=== PATIENT | female | born 1985 | race Caucasian/White ===

== ENCOUNTER 2016-05-26 20:00 | Inpatient (IN) ==
[2016-05-26] MEDS ORDERED: TORADOL IM STA (20:14)
[2016-05-26] MEDS ORDERED: TORADOL IVP STA (20:16)
[2016-05-26] MEDS ORDERED: PRIMAXIN 500 MG in SODIUM CHLORIDE 100 ML IV STA (20:16)
--- NOTE | 2016-05-26 20:18 | ED.PDOC ---
General ED Provider: Dr. REGINA OWENS Chief Complaint: Back Pain Stated Complaint: Been hurting in the left lower back since yesterday. frequency of urination. fever chills. Time Seen by Physician: 20:17 Mode of Arrival: Walk-In Information Source: Patient Primary Care Provider: REGINA OWENS-[facility] Nursing and Triage Documentation Reviewed and Agree: Yes Musculoskeletal Complaint Exam - Back Pain Complaint/Exam Mechanism of Injury: Reports: No known trauma Symptoms Are: Still present Timing: Constant Initial Severity: Severe Current Severity: Severe Location: Reports: Discrete Character: Reports: Aching, Throbbing Aggravating: Reports: Movements, Lifting Alleviating: Reports: None Associated Signs and Symptoms: Reports: Fever, Flank pain. Denies: Swelling, Redness, Bruising, Weakness, Numbness, Tingling, Abdominal pain, Bladder incontinence, Bowel incontinence, Weight loss, Pain with weight bearing TAD Risk Factors: Reports: None AAA Risk Factors: Reports: None Cauda Equina Risk Factors: Reports: None Epidural Abcess Risk Factors: Reports: None Related Surgical History: Reports: None Focal Tenderness: Yes Paraspinal Muscle Tenderness: Yes Paraspinal Muscle Spasm: Yes Scoliosis: No Lordosis: No Kyphosis: No Focal Weakness: Present: None Focal Sensory Loss: Present: None Gait: Present: Normal Differential Diagnoses: Renal Colic, Strain Review of Systems - Review Of Systems Constitutional: Reports: Fever, Malaise Eyes: Reports: No symptoms Ears, Nose, Mouth, Throat: Reports: No symptoms Respiratory: Reports: No symptoms Cardiac: Reports: No symptoms GI: Reports: Abdominal pain : Reports: Dysuria, Flank pain Musculoskeletal: Reports: Back pain Skin: Reports: No symptoms Neurological: Reports: No symptoms Endocrine: Reports: No symptoms Hematologic/Lymphatic: Reports: No symptoms All Other Systems: Reviewed and Negative Past Medical History - Past Medical History Previously Healthy: Yes Endocrine: Reports: None Cardiovascular: Reports: None Respiratory: Reports: None Hematological: Reports: None Gastrointestinal: Reports: None Genitourinary: Reports: None Neuro/Psych: Reports: None Musculoskeletal: Reports: None Cancer: Reports: None Last Menstrual Period: 1 1/2 weeks - Surgical History General Surgical History: Reports: None - Family History Family History: Reports: None - Social History Smoking Status: Current every day smoker, Heavy tobacco smoker Smoking Cessation Counseling Time: > 10 min Hx Substance Use: No Alcohol Screening: None Physical Exam - Physical Exam Appearance: Ill-appearing Pain Distress: Severe Eyes: CRISTINA, EOMI, Conjunctiva clear ENT: Ears normal, Nose normal, Oropharynx normal Respiratory: Airway patent, Breath sounds clear, Breath sounds equal, Respirations nonlabored Cardiovascular: RRR, Pulses normal, No rub, No murmur GI/: Soft, Tender (left cva) Musculoskeletal: Normal strength, ROM intact, No edema, No calf tenderness Skin: Warm, Dry, Normal color Neurological: Sensation intact, Motor intact, Reflexes intact, Cranial nerves intact, Alert, Oriented Psychiatric: Affect appropriate, Mood appropriate Interpretation - Radiology Interpretation Radiology Interpretation By: Radiologist Radiology Results: Positive Exam Interpreted: CT Scan Critical Care Note - Critical Care Note Total Time (mins): 0 Course - Course Hematology/Chemistry: 05/26/16 20:25 05/26/16 20:25 Orders, Labs, Meds: Lab Review 05/26/16 05/26/16 20:15 20:25 WBC 12.65 H RBC 4.16 L Hgb 12.7 Hct 37.6 MCV 90.4 MCH 30.5 MCHC 33.8 RDW Coeff of Uday 12.3 Plt Count 273 Immature Gran % (Auto) 0.3 Neut % (Auto) 84.1 Lymph % (Auto) 7.4 L Otero % (Auto) 7.3 Eos % (Auto) 0.7 Baso % (Auto) 0.2 Immature Gran # (Auto) 0.0 Neut # 10.6 H Lymph # 0.9 Otero # 0.9 Eos # 0.1 Baso # 0.0 Sodium 132 L Potassium 3.9 Chloride 98 Carbon Dioxide 27 Anion Gap 10.9 BUN 8 Creatinine 0.81 Estimated GFR (MDRD) 81.00 BUN/Creatinine Ratio 9.87 Glucose 91 Calcium 8.7 Total Bilirubin 0.50 AST 13 L ALT 8 L Alkaline Phosphatase 66 Total Protein 6.4 Albumin 3.2 L Globulin 3.2 Albumin/Globulin Ratio 1.00 Urine Color Light Urine Clarity Cloudy Urine pH 8.5 Ur Specific [place] 1.020 Urine Protein Trace Urine Glucose (UA) Negative Urine Ketones Negative Urine Blood 1+ Urine Nitrite Positive Urine Bilirubin Negative Urine Urobilinogen 0.2 Ur Leukocyte Esterase 1+ Urine Microscopic RBC 10-20 Urine Microscopic WBC 5-10 Ur Squamous Epith Cells 10-20 Ur Transition Epith Cell 2-5 Ur Renal Epithelial Cell 2-5 Urine Bacteria 4+ Urine Test Negative Orders Category Date Time Status ED IV/MEDIPORT/POWERPORT .ONCE EMERGENCY 05/26/16 20:16 Active BLOOD CULTURE Stat LAB 05/26/16 20:25 Received CBC W/ AUTO DIFF Stat LAB 05/26/16 20:25 Completed COMPREHENSIVE METABOLIC PANEL Stat LAB 05/26/16 20:25 Completed URINALYSIS C & S IF INDICATED Stat LAB 05/26/16 20:15 Completed URINE CULTURE Routine LAB 05/26/16 20:48 Received URINE Stat LAB 05/26/16 20:15 Completed 0.9 % Sodium Chloride [Saline Flush] MEDS 05/26/16 20:16 Ordered 1 syr IVF PRN PRN Imipenem/Cilastatin Sodium [Primaxin] 500 mg MEDS 05/26/16 20:16 Discontinued 0.9 % Sodium Chloride [Sodium Chloride] 100 ml IV ONCE Ketorolac Tromethamine [Toradol] MEDS 05/26/16 20:16 Discontinued 30 mg IVP ONCE STA Meperidine HCl/Pf [Demerol 25 mg/ml Syringe] MEDS 05/26/16 21:18 Discontinued 25 mg IVP ONCE STA CT ABDOMEN/PELVIS WO CONTRAST Stat RADS 05/26/16 20:14 Completed Medications Generic Name Dose Route Start Last Admin Trade Name Freq PRN Reason Stop Dose Admin Sodium Chloride 1 syr 05/26/16 20:16 05/26/16 21:02 Saline Flush IVF 1 syr PRN PRN Administration To flush IV Discontinued Medications Generic Name Dose Route Start Last Admin Trade Name Freq PRN Reason Stop Dose Admin Imipenem/Cilastatin Sodium 500 100 mls @ 100 mls/hr 05/26/16 20:16 05/26/16 21:04 mg/ Sodium Chloride IV 05/26/16 21:15 100 mls/hr ONCE STA Administration Ketorolac Tromethamine 30 mg 05/26/16 20:16 05/26/16 21:00 Toradol IVP 05/26/16 20:17 30 mg ONCE STA Administration Meperidine HCl 25 mg 05/26/16 21:18 05/26/16 21:29 Demerol 25 Mg/Ml Syringe IVP 05/26/16 21:19 25 mg ONCE STA Administration Vital Signs: Temp Pulse Resp BP Pulse Ox 05/26/16 20:01 101.5 F H 129 H 20 132/83 100 Departure - Departure Time of Disposition: 22:23 Disposition: ADMITTED INPATIENT Discharge Problem: Pyelonephritis Instructions: Urinary Tract Infection in Women (ED) Condition: Stable Pt referred to PMD for follow-up: Yes Allergies/Adverse Reactions: Allergies ceftriaxone sodium [From Rocephin] Adverse Reaction (Verified 05/26/16 20:08) Home Medications: Ambulatory Orders 1 [No Reported Medications] 05/26/16 Disposition Discussed With: Patient
[2016-05-26 20:35] LABS: BASOPHILS % (AUTO) 0.2 % (0.0-3.0); EOSINOPHILS # (AUTO) 0.1 K/ul (0.0-0.7); EOSINOPHILS % (AUTO) 0.7 % (0.0-7.0); HEMATOCRIT 37.6 % (37.0-47.0); HEMOGLOBIN 12.7 g/dl (12.0-16.0); IMMATURE GRANULOCYTE % (AUTO) 0.3 % (0.0-5.0); LYMPHOCYTES # (AUTO) 0.9 K/uL (0.60-3.4); LYMPHOCYTES % (AUTO) 7.4 (10.0-50.0); MEAN CORPUSCULAR HEMOGLOBIN 30.5 pg (27.0-31.0); MEAN CORPUSCULAR HGB CONC 33.8 (31.8-35.4); MEAN CORPUSCULAR VOLUME 90.4 fl (81.0-99.0); MONOCYTES # (AUTO) 0.9 K/uL (0.4-2.0); MONOCYTES % (AUTO) 7.3 (0-10); NEUTROPHILS # (AUTO) 10.6 K/ul (2.0-6.9); NEUTROPHILS % (AUTO) 84.1; PLATELET COUNT 273 10^3/uL (140-440); RED BLOOD COUNT 4.16 10^6/ul (4.20-5.40); WHITE BLOOD COUNT 12.65 K/ul (4.6-10.2)
[2016-05-26 20:48] LABS: ADD URINE MICROSCOPIC YES; BILIRUBIN,URINE Negative (NEGATIVE); KETONES,URINE Negative (NEGATIVE); LEUKOCYTE ESTERASE ,URINE 1+ (NEGATIVE); NITRITE,URINE Positive (NEGATIVE); PH,URINE 8.5 (5-9); PROTEIN,URINE Trace (NEGATIVE); URINE, BLOOD 1+ (NEGATIVE)
[2016-05-26 20:51] LABS: URINE PREGNANCY INTERNAL QC INTERNAL QC VALID
[2016-05-26 20:54] LABS: ALBUMIN 3.2 g/dL (3.4-5.0); ANION GAP 10.9; BILIRUBIN,TOTAL 0.5 mg/dL (0.00-1.20); BUN/CREATININE RATIO 9.87; CALCIUM 8.7 mg/dL (8.2-10.2); CREATININE 0.81 mg/dL (0.60-1.30); POTASSIUM 3.9 mmol/L (3.5-5.10); TOTAL PROTEIN 6.4 g/dL (6.4-8.2)
[2016-05-26 20:59] LABS: BACTERIA,URINE 4+ (NOT PRESENT)
[2016-05-26] MEDS ORDERED: DEMEROL 25 MG/ML SYRINGE IVP STA (21:18)
--- NOTE | 2016-05-26 22:16 | CT ---
EXAM: CT of the abdomen pelvis without contrast History: Left flank pain. Comparison: None available. Technique: Multiplanar CT images through the abdomen pelvis were obtained without the administratio n of IV contrast Findings: Lung bases are free of consolidation. Calcified granulomas seen within the right lower l obe. No acute osseous abnormalities. Evaluation is limited due to the lack of contrast administration. Punctate 1 mm left renal calculus. No hydronephrosis. There is minimal left perinephric stranding. 2 mm calcification within the left pelvis. No discrete gallstones identified by CT. No focal miriam er or splenic lesions. Scattered colonic stool. No golden peripancreatic inflammation. Adrenal gla nds are unremarkable. No evidence for bowel obstruction. The visualized appendix is not dilated or inflamed. There are a few mildly distended fluid-filled loops of small bowel within the left abdome n. No bladder wall thickening. Evaluation of the pelvis is limited due to loops of small bowel. Adnex al structures are difficult to evaluate without contrast. The contour uterus appears within normal limits. No perirectal inflammation. There is air seen within the vaginal/cervical region. Impression: 1. Minimal left perinephric stranding can be seen with a recently passed stone or pyelonephritis. Consider correlation with contrast enhanced study if deemed clinically necessary. 2. Punctate 1 mm left renal calculus. 3. 2 mm calcification within the left pelvis is probably a phlebolith but distal left ureteral ston e is not excluded. 4. Nonspecific air within the vaginal/cervical region. 5. A few mildly distended fluid-filled loops of small bowel within the left abdomen most likely rel ated to ileus or a mild enteritis. There is no specific evidence for small bowel obstruction.
[2016-05-26 23:13] VITALS: BMI 23.1
[2016-05-26] MEDS: SODIUM CHLORIDE 1,000 ML IV SCH (23:31)
[2016-05-26] MEDS: ZOFRAN 4 MG/2 ML IVP PRN (23:34)
[2016-05-26] MEDS: MORPHINE 2 MG/ML SYRINGE IVP PRN (23:35)
[2016-05-27] MEDS: TYLENOL PO PRN ×4 (02:46→21:38)
[2016-05-27] MEDS: PRIMAXIN 500 MG in SODIUM CHLORIDE 100 ML IV SCH ×3 (05:13→20:37)
[2016-05-27] MEDS: MORPHINE 2 MG/ML SYRINGE IVP PRN (05:39)
[2016-05-27] MEDS: ZOFRAN 4 MG/2 ML IVP PRN (05:39)
[2016-05-27 07:55] LABS: BASOPHILS % (AUTO) 0.2 % (0.0-3.0); EOSINOPHILS # (AUTO) 0.1 K/ul (0.0-0.7); EOSINOPHILS % (AUTO) 0.9 % (0.0-7.0); HEMATOCRIT 36.9 % (37.0-47.0); HEMOGLOBIN 12.3 g/dl (12.0-16.0); IMMATURE GRANULOCYTE % (AUTO) 0.3 % (0.0-5.0); LYMPHOCYTES # (AUTO) 1.6 K/uL (0.60-3.4); LYMPHOCYTES % (AUTO) 12.3 (10.0-50.0); MEAN CORPUSCULAR HEMOGLOBIN 30.4 pg (27.0-31.0); MEAN CORPUSCULAR HGB CONC 33.3 (31.8-35.4); MEAN CORPUSCULAR VOLUME 91.3 fl (81.0-99.0); MONOCYTES # (AUTO) 1.2 K/uL (0.4-2.0); MONOCYTES % (AUTO) 9.7 (0-10); NEUTROPHILS # (AUTO) 9.7 K/ul (2.0-6.9); NEUTROPHILS % (AUTO) 76.6; PLATELET COUNT 244 10^3/uL (140-440); RED BLOOD COUNT 4.04 10^6/ul (4.20-5.40); WHITE BLOOD COUNT 12.73 K/ul (4.6-10.2)
[2016-05-27 08:14] LABS: ALBUMIN 2.8 g/dL (3.4-5.0); ALBUMIN/GLOBULIN RATIO 0.9; ANION GAP 11.1; BILIRUBIN,TOTAL 0.5 mg/dL (0.00-1.20); BUN/CREATININE RATIO 11.53; CALCIUM 8.5 mg/dL (8.2-10.2); CREATININE 0.78 mg/dL (0.60-1.30); POTASSIUM 4.1 mmol/L (3.5-5.10); TOTAL PROTEIN 5.9 g/dL (6.4-8.2)
[2016-05-27] MEDS: SODIUM CHLORIDE 1,000 ML IV SCH ×2 (11:19→14:39)
[2016-05-27 12:42] LABS: COCAIN SCREEN,URINE NEGATIVE (NEGATIVE)
[2016-05-27] MEDS ORDERED: DILAUDID 1 MG/ML SYRINGE IVP PRN (15:02)
[2016-05-27] MEDS: NORCO 7.5-325 PO PRN ×2 (15:15→23:16)
[2016-05-28] MEDS: PRIMAXIN 500 MG in SODIUM CHLORIDE 100 ML IV SCH ×3 (04:19→20:21)
[2016-05-28] MEDS: SODIUM CHLORIDE 1,000 ML IV SCH ×3 (04:20→18:40)
[2016-05-28 07:52] LABS: BASOPHILS % (AUTO) 0.3 % (0.0-3.0); EOSINOPHILS # (AUTO) 0.2 K/ul (0.0-0.7); EOSINOPHILS % (AUTO) 1.6 % (0.0-7.0); HEMATOCRIT 35.7 % (37.0-47.0); HEMOGLOBIN 11.8 g/dl (12.0-16.0); IMMATURE GRANULOCYTE % (AUTO) 0.5 % (0.0-5.0); LYMPHOCYTES # (AUTO) 1.3 K/uL (0.60-3.4); LYMPHOCYTES % (AUTO) 14.2 (10.0-50.0); MEAN CORPUSCULAR HEMOGLOBIN 30.2 pg (27.0-31.0); MEAN CORPUSCULAR HGB CONC 33.1 (31.8-35.4); MEAN CORPUSCULAR VOLUME 91.3 fl (81.0-99.0); MONOCYTES # (AUTO) 0.9 K/uL (0.4-2.0); MONOCYTES % (AUTO) 9.9 (0-10); NEUTROPHILS # (AUTO) 6.8 K/ul (2.0-6.9); NEUTROPHILS % (AUTO) 73.5; PLATELET COUNT 235 10^3/uL (140-440); RED BLOOD COUNT 3.91 10^6/ul (4.20-5.40); WHITE BLOOD COUNT 9.29 K/ul (4.6-10.2)
[2016-05-28 08:26] LABS: ALBUMIN 2.6 g/dL (3.4-5.0); ALBUMIN/GLOBULIN RATIO 0.81; BILIRUBIN,TOTAL 0.22 mg/dL (0.00-1.20); BUN/CREATININE RATIO 7.89; CALCIUM 8.4 mg/dL (8.2-10.2); CREATININE 0.76 mg/dL (0.60-1.30); TOTAL PROTEIN 5.8 g/dL (6.4-8.2)
[2016-05-28] MEDS: NORCO 7.5-325 PO PRN ×2 (08:26→18:42)
[2016-05-29] MEDS: NORCO 7.5-325 PO PRN ×2 (03:17→12:24)
[2016-05-29] MEDS: PRIMAXIN 500 MG in SODIUM CHLORIDE 100 ML IV SCH ×3 (04:13→21:03)
[2016-05-29 04:46] LABS: BASOPHILS % (AUTO) 0.4 % (0.0-3.0); EOSINOPHILS # (AUTO) 0.3 K/ul (0.0-0.7); EOSINOPHILS % (AUTO) 3.3 % (0.0-7.0); HEMATOCRIT 33.1 % (37.0-47.0); HEMOGLOBIN 11.1 g/dl (12.0-16.0); IMMATURE GRANULOCYTE % (AUTO) 0.3 % (0.0-5.0); LYMPHOCYTES # (AUTO) 2.1 K/uL (0.60-3.4); LYMPHOCYTES % (AUTO) 28.2 (10.0-50.0); MEAN CORPUSCULAR HEMOGLOBIN 29.8 pg (27.0-31.0); MEAN CORPUSCULAR HGB CONC 33.5 (31.8-35.4); MONOCYTES % (AUTO) 13.4 (0-10); NEUTROPHILS # (AUTO) 4.1 K/ul (2.0-6.9); NEUTROPHILS % (AUTO) 54.4; PLATELET COUNT 258 10^3/uL (140-440); RED BLOOD COUNT 3.72 10^6/ul (4.20-5.40); WHITE BLOOD COUNT 7.51 K/ul (4.6-10.2)
[2016-05-29 05:07] LABS: ALBUMIN 2.6 g/dL (3.4-5.0); CALCIUM 8.5 mg/dL (8.2-10.2); POTASSIUM 3.6 mmol/L (3.5-5.10)
[2016-05-29 05:08] LABS: ALBUMIN/GLOBULIN RATIO 0.79; ANION GAP 9.6; BILIRUBIN,TOTAL 0.12 mg/dL (0.00-1.20); BUN/CREATININE RATIO 9.23; CREATININE 0.65 mg/dL (0.60-1.30); TOTAL PROTEIN 5.9 g/dL (6.4-8.2)
[2016-05-29] MEDS: SODIUM CHLORIDE 1,000 ML IV SCH (12:21)
--- NOTE | 2016-05-29 14:49 | PCM.PROG ---
Attending Provider: ATTENDING PROVIDER: Dr. REGINA OWENS DATE OF SERVICE: 05/29/16 SUBJECTIVE: This 31 year old WHITE/ F was hospitalized 05/26/16. The patient states she has been walking in the [place]. No fever. She still has left flank pain. No nausea or vomiting. Blood cultures are positive for gram negative rods. Urine is growing E. coli and the patient is on Primaxin. REVIEW OF SYSTEMS: CONSTITUTIONAL: No fever, no chills. ENDOCRINE: No weight loss or weight gain. HEENT: No sinus drainage, no sore throat. CVS: No angina symptoms. No CHF symptoms. No palpitations. No atypical chest pain for CAD. No shortness of breath. RESPIRATORY: No cough, no hemoptysis. GI: No melena. Left flank pain. No nausea, no vomiting. : No hematuria. No polyuria. SKIN: No rash. No wounds. MUSCULOSKELETAL: No pain. MATERIAL COORDINATOR: No blackout, no dizziness. No headache. No double vision. PSYCHIATRIC: Not anxious; no depression. No suicidal thoughts. No homicidal thoughts. PHYSICAL EXAMINATION: GENERAL: Lying in bed in some pain. VITAL SIGNS: Temperature 97.2 F, Pulse 97, Respiratory Rate 20, BP 108/72, Pulse Ox 100% HEENT: Normocephalic, atraumatic. Mucosa is dry, pallor positive. NECK: No JVP, no carotid bruit. No lymphadenopathy. CARDIAC: S1, S2, no S3. No murmur, gallop or regurgitation. LUNGS: Clear to auscultation. ABDOMEN: Soft. Left flank tenderness. Bowel sounds active. No rigidity, guarding. CVA tenderness is present. EXTREMITIES: No clubbing, cyanosis or edema. NEUROLOGIC: Awake, alert and oriented x3. LYMPHATIC: No palpable lymph nodes SKIN: Not dry. Intact. MUSCULOSKELETAL: No joint swelling. LAB REVIEW: 05/29/16 04:43 05/29/16 04:43 05/29/16 04:43: WBC 7.51, RBC 3.72 L, Hgb 11.1 L, Hct 33.1 L, MCV 89.0, MCH 29.8 , MCHC 33.5, RDW Coeff of Uday 12.1, Plt Count 258, Immature Gran % (Auto) 0.3, Neut % (Auto) 54.4, Lymph % (Auto) 28.2, Emmet % (Auto) 13.4 H, Eos % (Auto) 3.3 , Baso % (Auto) 0.4, Immature Gran # (Auto) 0.0, Neut # 4.1, Lymph # 2.1, Emmet # 1.0, Eos # 0.3, Baso # 0.0, Sodium 138, Potassium 3.6, Chloride 103, Carbon Dioxide 29, Anion Gap 9.6, BUN 6 L, Creatinine 0.65, Estimated GFR (MDRD) 105.00 , BUN/Creatinine Ratio 9.23, Glucose 103, Calcium 8.5, Total Bilirubin 0.12, AST 20, ALT 19, Alkaline Phosphatase 70, Total Protein 5.9 L, Albumin 2.6 L, Globulin 3.3, Albumin/Globulin Ratio 0.79 ASSESSMENT: 1. Left acute pyelonephritis organism E. coli 2. Bacturemia with gram negative rods 3. Anemia 4. Nicotine use PLAN: 1. Continue Primaxin 2. IV fluids 3. [place] 7.5 mg q.8 p.r.n. Plan and coordination of the patient's care discussed in the presence of Lobby Concierge and nurse. CONDITION: Stable SCRIBED BY: KRISTY MADRID Rubber Gasket Inspector Trimmer scribed while in presence of service performed by Dr. REGINA OWENS on 05/29/16 ([id number])
[2016-05-29] MEDS: ZOFRAN 4 MG/2 ML IVP PRN (15:49)
[2016-05-30] MEDS: NORCO 7.5-325 PO PRN (00:40)
[2016-05-30 05:12] LABS: BASOPHILS % (AUTO) 0.4 % (0.0-3.0); EOSINOPHILS # (AUTO) 0.3 K/ul (0.0-0.7); HEMATOCRIT 36.4 % (37.0-47.0); HEMOGLOBIN 12.1 g/dl (12.0-16.0); IMMATURE GRANULOCYTE % (AUTO) 0.4 % (0.0-5.0); LYMPHOCYTES # (AUTO) 2.5 K/uL (0.60-3.4); LYMPHOCYTES % (AUTO) 34.7 (10.0-50.0); MEAN CORPUSCULAR HGB CONC 33.2 (31.8-35.4); MEAN CORPUSCULAR VOLUME 90.1 fl (81.0-99.0); MONOCYTES # (AUTO) 0.8 K/uL (0.4-2.0); NEUTROPHILS # (AUTO) 3.5 K/ul (2.0-6.9); NEUTROPHILS % (AUTO) 49.5; PLATELET COUNT 315 10^3/uL (140-440); RED BLOOD COUNT 4.04 10^6/ul (4.20-5.40); WHITE BLOOD COUNT 7.17 K/ul (4.6-10.2)
[2016-05-30 05:35] LABS: ALBUMIN 2.6 g/dL (3.4-5.0); ALBUMIN/GLOBULIN RATIO 0.79; ANION GAP 10.3; BILIRUBIN,TOTAL 0.18 mg/dL (0.00-1.20); BUN/CREATININE RATIO 12.85; CALCIUM 8.9 mg/dL (8.2-10.2); CREATININE 0.7 mg/dL (0.60-1.30); POTASSIUM 4.3 mmol/L (3.5-5.10); TOTAL PROTEIN 5.9 g/dL (6.4-8.2)
[2016-05-30 05:41] VITALS: BP 92/60; TEMP 97
[2016-05-30] MEDS: SODIUM CHLORIDE 1,000 ML IV SCH ×2 (06:06→10:18)
[2016-05-30] MEDS: PRIMAXIN 500 MG in SODIUM CHLORIDE 100 ML IV SCH (06:08)
--- NOTE | 2016-05-30 09:10 | PN ---
DATE OF SERVICE: 05/28/16 SUBJECTIVE: The patient is lying in the bed. The patient had an hypertensive episode yesterday, systolic got up to the 80 for which nurse had to give almost 500 mL of fluid bolus then slowly blood pressure came to 90's and 100's. The patient was asymptomatic. As of now the patient is lying in the bed and not in any distress still had a fever early yesterday night at 8:00pm of 101.9. Otherwise some nausea and still has left sided pain. The urine grew the E-coli. Blood cultures are negative. REVIEW OF SYSTEMS: CONSTITUTIONAL: No fever, no chills. HEENT: Normal. ENDOCRINE: No weight gain, no weight loss. CVS: No angina symptoms. No CHF symptoms. No palpitations. No atypical chest pain for CAD. No shortness of breath. No PND, no orthopnea. RESPIRATORY: No cough, no hemoptysis. GI: No nausea, no vomiting. No abdominal pain. : No hematuria. No polyuria. MUSCULOSKELETAL:. No joint swelling. PSYCHIATRIC: Not anxious. No depression. No suicidal thoughts. No homicidal thoughts. SKIN: Intact. No rash. PHYSICAL EXAMINATION: V/S: Blood pressure 102/61, respiratory rate 20, heart qbpr956 and temperature 99. HEENT: Normocephalic, atraumatic. Ears, eyes, nose and throat normal. Mucosa dry. Pallor positive. No icterus. NECK: Supple. No JVD, no carotid bruit. No lymphadenopathy. LUNGS: Clear to auscultation. No rales or rhonchi. HEART: S1, S2 normal. No S3. No murmur, gallop or regurgitation. ABDOMEN: Left severe tenderness is present. Soft. Bowel sounds active. No rigidity. No rebound or guarding. No CVA tenderness. EXTREMITIES: No clubbing, cyanosis or pedal edema. MUSCULOSKELETAL: No joint swelling. NEUROLOGIC: Awake, alert, oriented times three. No focal deficit. LYMPHATIC: No lymph nodes palpable. SKIN: Intact. LABS: Sodium 136, potassium 4.0, chloride 102, bicarb 29, BUN 6, creatinine 0.76, WBC 9.29, hgb 11.8, hct 35.7 and plt count 235. ASSESSMENT: 1. Left sided acute pyelonephritis, organism is e-coli 2. Dehydration 3. Hypotension 4. Nicotine use PLAN: 1. Continue the Imipenem 2. IV fluids at 75ml per hour 3. Hydrocodone PRN 4. Out of bed to chair activity as tolerated. Encouraged her to walk. TIME SPENT: More than 30 minutes MTDD
--- NOTE | 2016-06-01 11:15 | PN ---
DATE OF SERVICE: 05/27/16 SUBJECTIVE: The patient was admitted from the emergency room by me for the left sided pyelonephritis. The patient had fever over the night at 2:00; 100.8. The patient is getting the antibiotic Primaxin and Dilaudid for the pain. Hypotensive but asymptomatic otherwise complains about the pain and nausea. REVIEW OF SYSTEMS: CONSTITUTIONAL: No fever, no chills. HEENT: Normal. ENDOCRINE: No weight gain, no weight loss. CVS: No angina symptoms. No CHF symptoms. No palpitations. No atypical chest pain for CAD. No shortness of breath. No PND, no orthopnea. RESPIRATORY: No cough, no hemoptysis. GI: No nausea, no vomiting. No abdominal pain. : No hematuria. No polyuria. MUSCULOSKELETAL:. No joint swelling. PSYCHIATRIC: Not anxious. No depression. No suicidal thoughts. No homicidal thoughts. SKIN: Intact. No rash. PHYSICAL EXAMINATION: V/S: Blood pressure 107/70, respiratory rate 18, heart rate 105 and temperature 98.7. GENERAL: Sick looking lady, laying in the bed not in any distress. HEENT: Normocephalic, atraumatic. Ears, eyes, nose and throat normal. Mucosa dry. Pallor positive. No icterus. NECK: Supple. No JVD, no carotid bruit. No lymphadenopathy. LUNGS: Clear to auscultation. No rales or rhonchi. HEART: S1, S2 normal. No S3. No murmur, gallop or regurgitation. ABDOMEN: Soft, nontender. Left severe tenderness. Bowel sounds active. No rigidity. No rebound or guarding. No CVA tenderness. EXTREMITIES: No clubbing, cyanosis or pedal edema. MUSCULOSKELETAL: No joint swelling. NEUROLOGIC: Awake, alert, oriented times three. No focal deficit. LYMPHATIC: No lymph nodes palpable. SKIN: Intact. LABS: WBC 12.73, hgb 12.3, hct 36.9, plt count 244, sodium 137, potassium 4.1, chloride 101, bicarb 29, BUN 9, creatinine 0.78. ASSESSMENT: 1. Left sided acute pyelonephritis 2. Dehydration 3. Hypotension most likely normal for patient 4. Nicotine use. PLAN: 1. Continue the Primaxin 2. Dilaudid PRN 3. IV fluids Will follow the patient in daily rounds. TIME SPENT: More than 30 minutes MTDD
--- NOTE | 2016-07-06 15:34 | DS ---
DATE OF SERVICE: 05/30/16 FINAL DIAGNOSIS: 1. UTI e-coli organism and bacteremia 2. Left sided pyelonephritis 3. Anemia 4. History of Amphetamine use 5. Nicotine use DISCHARGE INSTRUCTIONS: Discharge the patient home. MEDICATIONS AT DISCHARGE: Bactrim DS twice a day for seven more days. NEW PRESCRIPTIONS: Bactrim DS twice a day for 7 more days DIET INSTRUCTIONS: Regular ACTIVITY: As much as tolerated SMOKING: Counseling for smoking done. DISEASE SPECIFIC EDUCATION: Antibiotic use; diarrhea been discussed. HOSPITAL COURSE: Gloria Brower who is a 31 year old female came to the emergency room with fever and chills. Initial temperature was 101.5. Urine was positive for the Nitrates and the Leukocyte esterase. White count was 12,000. The CT of abdomen and pelvis done which showed left sided pyelonephritis. She was started on the IV fluids, antibiotics and pain medication Dilaudid was given and Primaxin was given. Imipenem/Cilastatin was given then Demerol plus pain medication. Gradually the temperature was coming down 101.9 and 97. Blood culture also grew the e-coli which was sensitive to the antibiotics which are continued. At that time as patient was afebrile and review of the blood cultures the patient was advised to get antibiotics for total of 14 days which she agreed and was feeling better, did not have any problems. Up and about walking, no fever or chills. No PND or Orthopnea. As patient was doing fine and did not have any problems she is being discharged and strictly explained about the antibiotic use , diarrhea and the risk of endocranitis. She verbalized understanding. TIME SPENT: More than 50 minutes today. SIMONA
--- NOTE | 2016-07-19 11:58 | PN ---
DATE OF SERVICE: 05/26/16 I saw the patient in the emergency room and I agree with the diagnosis and the plan. SIMONA
== END 2016-05-30 10:20 | disposition home or self-care (01) | DRG 690 ==
LOC: ED 20:00 → MEDSURG B 22:43
PROVIDERS: ADMIT Emergency Medicine; ATTEND Emergency Medicine
DX: N39.0 Urinary tract infection, site not specified (principal); R78.81 Bacteremia; N12 Tubulo-interstitial nephritis, not specified as acute or chronic; D64.9 Anemia, unspecified; E86.0 Dehydration; I95.9 Hypotension, unspecified; R10.32 Left lower quadrant pain; B96.20 Unspecified Escherichia coli [E. coli] as the cause of diseases classified elsewhere; F15.90 Other stimulant use, unspecified, uncomplicated; F17.200 Nicotine dependence, unspecified, uncomplicated
CPT/HCPCS: 36415; 80053; 80306; 81001; 81025; 85025; 87040; 87070; 87086; 87186; 96361; 96365; 96375; 99233; 99239; 99284

== ENCOUNTER 2016-09-02 20:01 | Emergency (ER) ==
[2016-09-02 20:09] VITALS: BP 113/74; TEMP 97.9; BMI 23.5
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
[2016-09-02] MEDS ORDERED: TORADOL IM STA (20:38)
--- NOTE | 2016-09-03 05:33 | DI ---
Exam: Right ankle 3 views History: Injury and pain Findings/Impression: No significant isela or articular abnormality. Negative exam.
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
== END 2016-09-02 21:24 | disposition home or self-care (01) ==
LOC: ED 20:01
DX: S89.91XA Unspecified injury of right lower leg, initial encounter (principal); M79.661 Pain in right lower leg; M25.571 Pain in right ankle and joints of right foot; V19.9XXA Pedal cyclist (driver) (passenger) injured in unspecified traffic accident, initial encounter; F17.210 Nicotine dependence, cigarettes, uncomplicated
CPT/HCPCS: 96372; 99283

== ENCOUNTER 2016-12-20 08:57 | Emergency (ER) ==
[2016-12-20 09:02] VITALS: BP 124/81; TEMP 97.6; BMI 23.5
[2016-12-20 09:20] LABS: BASOPHILS # (AUTO) 0.1 K/uL (0-0.2); BASOPHILS % (AUTO) 0.4 % (0.0-3.0); EOSINOPHILS # (AUTO) 0.2 K/ul (0.0-0.7); EOSINOPHILS % (AUTO) 1.6 % (0.0-7.0); HEMATOCRIT 38.6 % (37.0-47.0); HEMOGLOBIN 13.9 g/dl (12.0-16.0); IMMATURE GRANULOCYTE % (AUTO) 0.3 % (0.0-5.0); LYMPHOCYTES # (AUTO) 2.1 K/uL (0.60-3.4); LYMPHOCYTES % (AUTO) 18.4 (10.0-50.0); MEAN CORPUSCULAR HEMOGLOBIN 30.9 pg (27.0-31.0); MEAN CORPUSCULAR VOLUME 85.8 fl (81.0-99.0); MONOCYTES # (AUTO) 0.8 K/uL (0.4-2.0); NEUTROPHILS # (AUTO) 8.3 K/ul (2.0-6.9); NEUTROPHILS % (AUTO) 72.3; PLATELET COUNT 329 10^3/uL (140-440); WHITE BLOOD COUNT 11.44 K/ul (4.6-10.2)
[2016-12-20 09:24] LABS: BILIRUBIN,URINE Negative (NEGATIVE); KETONES,URINE Negative (NEGATIVE); LEUKOCYTE ESTERASE ,URINE 2+ (NEGATIVE); NITRITE,URINE Negative (NEGATIVE); PH,URINE 8.5 (5-9); PROTEIN,URINE Negative (NEGATIVE); URINE, BLOOD Negative (NEGATIVE)
[2016-12-20 09:25] LABS: ADD URINE MICROSCOPIC YES
[2016-12-20 09:37] LABS: SERUM PREGNANCY INTERNAL QC INTERNAL QC VALID
[2016-12-20 09:39] LABS: ALBUMIN 3.7 g/dL (3.4-5.0); ALBUMIN/GLOBULIN RATIO 1.12; ANION GAP 12.2; BILIRUBIN,TOTAL 0.16 mg/dL (0.00-1.20); BUN/CREATININE RATIO 13.51; CALCIUM 9.9 mg/dL (8.2-10.2); CREATININE 0.74 mg/dL (0.60-1.30); POTASSIUM 3.2 mmol/L (3.5-5.10)
--- NOTE | 2016-12-20 10:36 | US ---
EXAM: Transvaginal OB ultrasound HISTORY: Left lower quadrant pain COMPARISON: None TECHNIQUE: Multiple sonographic and limited Doppler evaluation images were performed. FINDINGS: There is a single intrauterine gestation. Gestational sac, yolk sac and pole is id entified. Heart rate is measured from 115 - 121 beats per minute. pole measures 0.3 cm in uli [facility]. Uterus measures 8.4 x 5.0 x 5.3 cm. The right ovary measures 3.0 x 1.6 x 1.3 cm. The left ovary me asures 4.0 x 2.3 x 2.0 cm. There is a 2.0 x 2.1 x 2.0 cm cyst in the left ovary. IMPRESSION: Single intrauterine gestation with heart rate of 115 - 121 beats per minute with estima kylah gestational age by size of 6 weeks 1 day with date of delivery estimated at 08/14/2017. Left ovarian cyst is likely corpus luteum.
--- NOTE | 2016-12-20 10:43 | ED.PDOC ---
General ED Provider: Dr. TONYA CACERES Chief Complaint: Abdominal Pain Stated Complaint: abdominal pain Time Seen by Physician: 09:00 Mode of Arrival: Walk-In Information Source: Patient Exam Limitations: No limitations Primary [facility] Nursing and Triage Documentation Reviewed and Agree: Yes GI Complaint Exam - Abdominal Pain Complaint/Exam Onset: Gradual Duration: 2 days Symptoms Are: Still present Initial Severity: Moderate Current Severity: Mild Location of Pain: RLQ Character: Reports: Aching Aggravating: Reports: None Alleviating: Reports: None Associated Signs and Symptoms: Denies: Diaphoresis, Fever, Cough, Chest pain, Dizziness, Back pain, Constipation, Blood in stool, Dysuria, Urinary frequency, Decreased urine output, Decreased appetite, Vaginal bleeding, Vaginal discharge , Nausea, Vomiting, Diarrhea, Sore throat, Decreased activity AAA Risk Factors: Reports: None Cardiac Risk Factors: Reports: None Ectopic Risk Factors: Reports: None Ovarian Torsion Risk Factors: Reports: Reproductive age Surgical Obstruction Risk Factors: Reports: None Related Surgical History: Reports: None Patient Rh Status: Unknown Vulva Exam: Present: Normal Findings Differential Diagnoses: Appendicitis, Bowel Obstruction, Constipation, Diverticulitis, Gastroenteritis, Irritable Bowel Syndrome, Pneumonia, Renal Colic, Ureteral Stone Review of Systems - Review Of Systems Constitutional: Reports: No symptoms Eyes: Reports: No symptoms Ears, Nose, Mouth, Throat: Reports: No symptoms Respiratory: Reports: No symptoms Cardiac: Reports: No symptoms GI: Reports: Abdominal pain : Reports: No symptoms Musculoskeletal: Reports: No symptoms Skin: Reports: No symptoms Neurological: Reports: No symptoms Endocrine: Reports: No symptoms Hematologic/Lymphatic: Reports: No symptoms All Other Systems: Reviewed and Negative Past Medical History - Past Medical History Previously Healthy: Yes Endocrine: Reports: None Cardiovascular: Reports: None Respiratory: Reports: None Hematological: Reports: None Gastrointestinal: Reports: None Genitourinary: Reports: None Neuro/Psych: Reports: None Musculoskeletal: Reports: None Cancer: Reports: None Last Menstrual Period: 2 weeks late - Surgical History General Surgical History: Reports: None - Family History Family History: Reports: None - Social History Smoking Status: Current every day smoker, Heavy tobacco smoker Hx Substance Use: No Alcohol Screening: None Physical Exam - Physical Exam Appearance: Well-appearing, No pain distress, Well-nourished Eyes: CRISTINA, EOMI, Conjunctiva clear ENT: Ears normal, Nose normal, Oropharynx normal Respiratory: Airway patent, Breath sounds clear, Breath sounds equal, Respirations nonlabored Cardiovascular: RRR, Pulses normal, No rub, No murmur GI/: Soft, Nontender, No masses, Bowel sounds normal, No Organomegaly Musculoskeletal: Normal strength, ROM intact, No edema, No calf tenderness Skin: Warm, Dry, Normal color Neurological: Sensation intact, Motor intact, Reflexes intact, Cranial nerves intact, Alert, Oriented Psychiatric: Affect appropriate, Mood appropriate Interpretation - Radiology Interpretation Radiology Interpretation By: Radiologist Radiology Results: Positive (postive live ) Critical Care Note - Critical Care Note Total Time (mins): 0 Course - Course Hematology/Chemistry: 12/20/16 09:10 12/20/16 09:10 Orders, Labs, Meds: Lab Review 12/20/16 09:10 WBC 11.44 H RBC 4.50 Hgb 13.9 Hct 38.6 MCV 85.8 MCH 30.9 MCHC 36.0 H RDW Coeff of Uday 11.8 Plt Count 329 Immature Gran % (Auto) 0.3 Neut % (Auto) 72.3 Lymph % (Auto) 18.4 [place] % (Auto) 7.0 Eos % (Auto) 1.6 Baso % (Auto) 0.4 Immature Gran # (Auto) 0.0 Neut # 8.3 H Lymph # 2.1 [place] # 0.8 Eos # 0.2 Baso # 0.1 Sodium 137 Potassium 3.2 L Chloride 102 Carbon Dioxide 26 Anion Gap 12.2 BUN 10 Creatinine 0.74 Estimated GFR (MDRD) 90.00 BUN/Creatinine Ratio 13.51 Glucose 86 Calcium 9.9 Total Bilirubin 0.16 AST 14 L ALT 11 L Alkaline Phosphatase 69 Total Protein 7.0 Albumin 3.7 Globulin 3.3 Albumin/Globulin Ratio 1.12 Amylase 46 Lipase 12 Serum , Qual Positive Urine Color Yellow Urine Clarity Slightly Urine pH 8.5 Ur Specific [place] 1.015 Urine Protein Negative Urine Glucose (UA) Negative Urine Ketones Negative Urine Blood Negative Urine Nitrite Negative Urine Bilirubin Negative Urine Urobilinogen 0.2 Ur Leukocyte Esterase 2+ Urine Microscopic WBC 2-5 Ur Squamous Epith Cells 0-2 Amorphous Sediment 2+ Orders Category Date Time Status AMYLASE Stat LAB 12/20/16 09:10 Completed CBC W/ AUTO DIFF Stat LAB 12/20/16 09:10 Completed COMPREHENSIVE METABOLIC PANEL Stat LAB 12/20/16 09:10 Completed LIPASE Stat LAB 12/20/16 09:10 Completed SERUM Stat LAB 12/20/16 09:10 Completed URINALYSIS C & S IF INDICATED Stat LAB 12/20/16 09:10 Completed U/S OB/TV Stat RADS 12/20/16 09:44 Completed Vital Signs: Temp Pulse Resp BP Pulse Ox 12/20/16 08:58 97.6 F 109 H 18 124/81 99 Departure - Departure Time of Disposition: 10:42 (labs and us discussed with nurse at bedside) Disposition: HOME SELF-CARE Discharge Problem: Abdominal pain, Instructions: (ED) Condition: Good Pt referred to PMD for follow-up: Yes Allergies/Adverse Reactions: Allergies ceftriaxone sodium [From Rocephin] Adverse Reaction (Verified 12/20/16 09:02) Swelling Home Medications: Ambulatory Orders 1 [No Reported Medications] 12/20/16
== END 2016-12-20 10:55 | disposition home or self-care (01) ==
LOC: ED 08:57
DX: R10.31 Right lower quadrant pain (principal); Z33.1 Pregnant state, incidental
CPT/HCPCS: 36415; 80053; 81001; 82150; 83690; 84703; 85025; 99283

== ENCOUNTER 2017-08-17 13:37 | Emergency (ER) ==
[2017-08-17 13:43] VITALS: BP 136/87; TEMP 98.9; BMI 27.6
--- NOTE | 2017-08-17 13:56 | ED.PDOC ---
General ED Provider: Dr. TONYA CACERES Chief Complaint: Back Pain Stated Complaint: LOWBACK CONNELLY Time Seen by Physician: 13:49 (SEEN WITH LATHA AT ALL TIMES ) Mode of Arrival: Walk-In Information Source: Patient Primary Care Provider: REGINA ROWE Referred to ED by: Other (S/P EPIDURAL 1 WEEK AGO) Nursing and Triage Documentation Reviewed and Agree: Yes Reviewed sepsis parameters & appropriate labs ordered?: Yes System Inflammatory Response Syndrome: Not Applicable Sepsis Protocol: For patient's 13 years and over: Temp is 96.8 and below OR 101 and greater Pulse >90 BPM Resp >20/minute Acutely Altered Mental Status Are patient's symptoms suggestive of a new infection, such as: -Pneumonia -Skin, Soft Tissue -Endocarditis -UTI -Bone, Joint Infection -Implantable Device -Acute Abdominal Infection -Wound Infection -Meningitis -Blood Stream Catheter Infection -Unknown System Inflammatory Response Syndrome: Not Applicable Musculoskeletal Complaint Exam - Back Pain Complaint/Exam Mechanism of Injury: Reports: Trauma (EPIDURAL) Onset/Duration: 1337 Symptoms Are: Still present Timing: Constant Episodes Lasting: Days Initial Severity: Moderate Current Severity: Moderate Location: Reports: Discrete Character: Reports: Aching Aggravating: Reports: Movements, Lifting, Bending, Walking Alleviating: Reports: Rest, Position Associated Signs and Symptoms: Denies: Swelling, Redness, Bruising, Fever, Weakness, Numbness, Tingling, Abdominal pain, Flank pain, Bladder incontinence, Bowel incontinence, Weight loss, Pain with weight bearing TAD Risk Factors: Reports: None AAA Risk Factors: Reports: None Cauda Equina Risk Factors: Reports: None Epidural Abcess Risk Factors: Reports: None Related Surgical History: Reports: None Focal Tenderness: No Paraspinal Muscle Tenderness: No Paraspinal Muscle Spasm: No Scoliosis: No Lordosis: No Kyphosis: No SLR Test: Right Negative, Left Negative Hip Motion Testing Pain: Right Negative, Left Negative Focal Weakness: Present: None Focal Sensory Loss: Present: None Gait: Present: Normal Differential Diagnoses: Strain, Sprain Review of Systems - Review Of Systems Constitutional: Reports: No symptoms Eyes: Reports: No symptoms Ears, Nose, Mouth, Throat: Reports: No symptoms Respiratory: Reports: No symptoms Cardiac: Reports: No symptoms GI: Reports: No symptoms : Reports: No symptoms Musculoskeletal: Reports: Back pain Skin: Reports: No symptoms Neurological: Reports: No symptoms Endocrine: Reports: No symptoms Hematologic/Lymphatic: Reports: No symptoms All Other Systems: Reviewed and Negative Past Medical History - Past Medical History Previously Healthy: Yes Endocrine: Reports: None Cardiovascular: Reports: None Respiratory: Reports: None Hematological: Reports: None Gastrointestinal: Reports: None Genitourinary: Reports: None Neuro/Psych: Reports: None Musculoskeletal: Reports: None Cancer: Reports: None Last Menstrual Period: gave 08/12/17 - Surgical History General Surgical History: Reports: None - Family History Family History: Reports: None - Social History Smoking Status: Current every day smoker, Heavy tobacco smoker Hx Substance Use: No Alcohol Screening: None Physical Exam - Physical Exam Appearance: Well-appearing, No pain distress, Well-nourished Eyes: CRISTINA, EOMI, Conjunctiva clear ENT: Ears normal, Nose normal, Oropharynx normal Respiratory: Airway patent, Breath sounds clear, Breath sounds equal, Respirations nonlabored Cardiovascular: RRR, Pulses normal, No rub, No murmur GI/: Soft, Nontender, No masses, Bowel sounds normal, No Organomegaly Musculoskeletal: Normal strength, ROM intact, No edema, No calf tenderness Skin: Warm, Dry, Normal color Neurological: Sensation intact, Motor intact, Reflexes intact, Cranial nerves intact, Alert, Oriented Psychiatric: Affect appropriate, Mood appropriate Critical Care Note - Critical Care Note Total Time (mins): 0 Course - Course Vital Signs: Temp Pulse Resp BP Pulse Ox 08/17/17 13:39 98.9 F 78 16 136/87 98 Departure - Departure Time of Disposition: 13:56 Disposition: HOME SELF-CARE Discharge Problem: Backache, Migraine Low back pain Qualifiers: Chronicity: unspecified Back pain laterality: midline Sciatica presence: without sciatica Qualified Code(s): M54.5 - Low back pain Instructions: Acute Low Back Pain (ED) Condition: Good Pt referred to PMD for follow-up: Yes IPMP verified?: No Additional Instructions: Please call your Family Physician as soon as possible to schedule a follow-up appointment. Prescriptions: Hydrocodone/Acetaminophen [[place] 10-325 Tablet] 1 each PO Q8HR #12 tablet Allergies/Adverse Reactions: Allergies ceftriaxone sodium [From Rocephin] Adverse Reaction (Verified 08/17/17 13:43) Swelling Home Medications: Ambulatory Orders Hydrocodone/Acetaminophen [[place] 10-325 Tablet] 1 each PO Q8HR #12 tablet
== END 2017-08-17 14:00 | disposition home or self-care (01) ==
LOC: ED 13:37
DX: M54.5 Low back pain (principal); G43.909 Migraine, unspecified, not intractable, without status migrainosus; F17.210 Nicotine dependence, cigarettes, uncomplicated
CPT/HCPCS: 99283

== ENCOUNTER 2017-09-18 09:56 | Outpatient (CLI) ==
--- NOTE | 2017-09-18 14:03 | DI ---
Exam: Three views of the lumbar spine. Comparison: CT performed 02/27/2010. Reason for exam: Back pain with sciatica, right-sided FINDINGS: No acute fracture or malalignment. The vertebral body and intervertebral body disc space heights are well maintained. There is normal appearing lumbar lordotic curve. Nonspecific, nonobstr uctive bowel gas pattern. Impression: No acute fracture or listhesis in the lumbar spine.
== END 2017-09-18 09:57 | disposition home or self-care (01) ==
LOC: LAB 09:56
PROVIDERS: ATTEND Emergency Medicine
DX: M54.41 Lumbago with sciatica, right side (principal); G44.52 New daily persistent headache (NDPH)
CPT/HCPCS: 36415; 80053; 85025

== ENCOUNTER 2017-10-09 13:46 | Outpatient (CLI) | END 2017-10-09 13:47 | disposition home or self-care (01) | LOC: LAB 13:46 | PROVIDERS: ATTEND Nurse Practitioner Family | DX: R63.5 Abnormal weight gain (principal) | CPT/HCPCS: 36415; 80061; 84443; 93005; 93010 ==

== ENCOUNTER 2017-11-13 12:00 | Emergency (ER) ==
[2017-11-13 12:04] VITALS: BP 129/78; TEMP 97.1; BMI 25.9
[2017-11-13] MEDS ORDERED: ZYRTEC PO STA (12:55)
[2017-11-13] MEDS ORDERED: BENADRYL PO STA (12:55)
[2017-11-13] MEDS ORDERED: DECADRON 4 MG/ML SDV IM STA (12:56)
--- NOTE | 2017-11-13 12:57 | ED.PDOC ---
General ED Provider: Dr. CASSY ESQUIVEL Chief Complaint: Allergic Reaction Stated Complaint: Developed red rash below both eyes and facial region for past 2 days[place]familiar with specific exposure other than general exposure. Similar event a few weeks ago. Chronic Low back pain R>L occuring since Epidural during labor and apparent multiple attempts to place epidural Time Seen by Physician: 12:45 Mode of Arrival: Walk-In Information Source: Patient Exam Limitations: No limitations [facility] and Triage Documentation Reviewed and Agree: Yes Does patient meet sepsis criteria?: No System Inflammatory Response Syndrome: Not Applicable Sepsis Protocol: For patient's 13 years and over: Temp is 96.8 and below OR 101 and greater Pulse >90 BPM Resp >20/minute Acutely Altered Mental Status Are patient's symptoms suggestive of a new infection, such as: -Pneumonia -Skin, Soft Tissue -Endocarditis -UTI -Bone, Joint Infection -Implantable Device -Acute Abdominal Infection -Wound Infection -Meningitis -Blood Stream Catheter Infection -Unknown Environmental Complaint Exam - Allergic Reaction Complaint/Exam Symptoms Are: Still present Timing: Constant Initial Severity: Moderate Current Severity: Moderate Location: Discrete Character: Present: Swelling, Pruritis Aggravating: Reports: None Alleviating: Reports: Antihistamines Associated Signs and Symptoms: Reports: Rash. Denies: Difficulty breathing, Cough, Wheezing, Chest pain, Hoarseness, Throat tightening, Throat swelling, Abdominal pain, Diaphoresis, Lightheadedness, Syncope, Nausea, Vomiting Possible Reaction To: Reports: Environment Related History: Similar episode Diphenhydramine Prior to Arrival: No Epinephrine Auto Injector Prior to Arrival: No Respiratory Distress: None Findings: Present: Hoarseness Review of Systems - Review Of Systems Constitutional: Reports: Malaise. Denies: Chills, Diaphoresis Eyes: Reports: Foreign body sensation, Other (areas of rash in periorbital region r/l) Ears, Nose, Mouth, Throat: Reports: No symptoms Respiratory: Reports: No symptoms Cardiac: Reports: No symptoms GI: Reports: No symptoms : Reports: No symptoms Musculoskeletal: Reports: Back pain Skin: Reports: Rash Neurological: Reports: No symptoms Endocrine: Reports: No symptoms Hematologic/Lymphatic: Reports: No symptoms All Other Systems: Reviewed and Negative Past Medical History - Past Medical History Previously Healthy: Yes Endocrine: Reports: None Cardiovascular: Reports: None Respiratory: Reports: None Hematological: Reports: None Gastrointestinal: Reports: None Genitourinary: Reports: None Neuro/Psych: Reports: None Musculoskeletal: Reports: None Cancer: Reports: None Last Menstrual Period: just finished - Surgical History General Surgical History: Reports: None - Family History Family History: Reports: None - Social History Smoking Status: Current every day smoker, Heavy tobacco smoker Hx Substance Use: No Alcohol Screening: None Physical Exam - Physical Exam Appearance: Well-appearing, Thin Ill-appearing: None Pain Distress: None Eyes: CRISTINA, EOMI, Conjunctiva clear (rash periorbitgal region -no warmth, tenderness) ENT: Ears normal, Nose normal, Oropharynx normal Neck: Supple Respiratory: Airway patent, Breath sounds clear, Breath sounds equal Cardiovascular: RRR, Pulses normal, No rub, No murmur GI/: Soft, Nontender, No masses, Bowel sounds normal, No Organomegaly Musculoskeletal: Normal strength, ROM intact, No edema, No calf tenderness Skin: Warm, Dry (Rash periorbigal region OU and adjacent Rt Nares) Neurological: Sensation intact, Motor intact, Reflexes intact, Cranial nerves intact, Alert, Oriented Psychiatric: Affect appropriate, Mood appropriate, Anxious Critical Care Note - Critical Care Note Total Time (mins): 0 Course - Course Hematology/Chemistry: 11/13/17 10:21 11/13/17 10:21 Orders, Labs, Meds: Lab Review 11/13/17 11/13/17 10:21 10:21 WBC 7.14 RBC 4.60 Hgb 13.1 Hct 39.6 MCV 86.1 MCH 28.5 MCHC 33.1 RDW Coeff of Uday 14.5 Plt Count 313 Immature Gran % (Auto) 0.3 Neut % (Auto) 58.7 Lymph % (Auto) 30.5 [place] % (Auto) 5.3 Eos % (Auto) 4.5 Baso % (Auto) 0.7 Immature Gran # (Auto) 0.0 Neut # (Auto) 4.2 Lymph # (Auto) 2.2 [place] # (Auto) 0.4 Eos # (Auto) 0.3 Baso # (Auto) 0.1 Sodium 140 Potassium 4.0 Chloride 105 Carbon Dioxide 29 Anion Gap 10.0 BUN 12 Creatinine 0.77 Estimated GFR (MDRD) 86.00 BUN/Creatinine Ratio 15.58 Glucose 80 Calcium 9.1 Total Bilirubin 0.3 AST 19 ALT 17 Alkaline Phosphatase 65 Total Protein 6.7 Albumin 3.4 Globulin 3.3 Albumin/Globulin Ratio 1.03 Orders Category Date Time Status CBC W/ AUTO DIFF Stat LAB 11/13/17 10:21 Completed CMP [COMPREHENSIVE METABOLIC PANEL] Stat LAB 11/13/17 10:21 Completed Cetirizine HCl [Zyrtec] MEDS 11/13/17 12:55 Discontinued 10 mg PO ONCE STA Dexamethasone 4 mg/ml Inj [Decadron 4 mg/ml Sdv] MEDS 11/13/17 12:56 Discontinued 4 mg IM ONCE STA Diphenhydramine HCl [Benadryl] MEDS 11/13/17 12:55 Discontinued 25 mg PO ONCE STA Medications Discontinued Medications Generic Name Dose Route Start Last Admin Trade Name Shay PRN Reason Stop Dose Admin Cetirizine HCl 10 mg 11/13/17 12:55 11/13/17 13:10 Zyrtec PO 11/13/17 12:56 10 mg ONCE STA Administration Dexamethasone Sodium Phosphate 4 mg 11/13/17 12:56 11/13/17 13:11 Decadron 4 Mg/Ml Sdv IM 11/13/17 12:57 4 mg ONCE STA Administration Diphenhydramine HCl 25 mg 11/13/17 12:55 11/13/17 13:10 Benadryl PO 11/13/17 12:56 25 mg ONCE STA Administration Vital Signs: Temp Pulse Resp BP Pulse Ox 11/13/17 12:00 97.1 F L 85 16 129/78 98 Departure - Departure Time of Disposition: 15:00 Disposition: HOME SELF-CARE Discharge Problem: Facial rash, Perioral dermatitis, Chronic low back pain Instructions: Acute Rash (ED), Chronic Back Pain (ED), Lower Back Exercises (ED ) Condition: Good Pt referred to PMD for follow-up: Yes (1 week PCP) IPMP verified?: No Additional Instructions: Apply hypoallergenic moisturizing lotion to area of rash See PCP in next week Consider referral to PT for outpatient tx for low back pain Take analgesics Ibuprofen for pain control Prescriptions: Cetirizine HCl [Zyrtec] 10 mg PO DAILY #30 tablet Prednisone 10 mg PO DAILYWM 8 Days #20 tablet Allergies/Adverse Reactions: Allergies ceftriaxone sodium [From Rocephin] Adverse Reaction (Verified 11/13/17 12:05) Swelling Home Medications: Ambulatory Orders Cetirizine HCl [Zyrtec] 10 mg PO DAILY #30 tablet 11/13/17 Prednisone 10 mg PO DAILYWM 8 Days #20 tablet 11/13/17 Disposition Discussed With: Patient
== END 2017-11-13 15:28 | disposition home or self-care (01) ==
LOC: ED 12:00
DX: R21 Rash and other nonspecific skin eruption (principal); T78.40XA Allergy, unspecified, initial encounter; M54.5 Low back pain; G89.29 Other chronic pain; F17.210 Nicotine dependence, cigarettes, uncomplicated
CPT/HCPCS: 36415; 80053; 85025; 96372; 99283

== ENCOUNTER 2018-04-27 17:56 | Emergency (ER) | payer OTHER ==
[2018-04-27 18:03] VITALS: BP 138/85; TEMP 97.4; BMI 25.0
[2018-04-27] MEDS ORDERED: DILAUDID 1 MG/ML SYRINGE IM STA (18:39)
[2018-04-27] MEDS ORDERED: MOTRIN PO STA (18:39)
[2018-04-27] MEDS ORDERED: CLEOCIN PO STA (18:40)
--- NOTE | 2018-04-27 18:43 | ED.PDOC ---
General ED Provider: Dr. MADISON BURNETTE Chief Complaint: Tooth Problem Stated Complaint: Dental pain on the left upper molar after filling fell off. Rates the pain as 10/10 Time Seen by Physician: 18:41 Mode of Arrival: Walk-In Information Source: Patient Exam Limitations: No limitations Primary Care Provider: ARETHA MENDOZA Nursing and Triage Documentation Reviewed and Agree: Yes Does patient meet sepsis criteria?: No System Inflammatory Response Syndrome: Not Applicable Sepsis Protocol: For patient's 13 years and over: Temp is 96.8 and below OR 101 and greater Pulse >90 BPM Resp >20/minute Acutely Altered Mental Status Are patient's symptoms suggestive of a new infection, such as: -Pneumonia -Skin, Soft Tissue -Endocarditis -UTI -Bone, Joint Infection -Implantable Device -Acute Abdominal Infection -Wound Infection -Meningitis -Blood Stream Catheter Infection -Unknown EENT Complaint Exam - Dental/Oral Complaint/Exam Mechanism of Injury: No known trauma Onset/Duration: 1 day Symptoms Are: Still present Timing: Constant Initial Severity: Moderate Current Severity: Severe Character: Reports: Aching, Throbbing Aggravating: Reports: Heat, Cold, Chewing Alleviating: Reports: None Associated Signs and Symptoms: Denies: Swelling, Discharge, Fever, Foul odor, Foul taste in mouth Related History: Reports: Similar episode Cardiac Risk Factors: Reports: None Dental/Oral Surgical History: Reports: None Tooth Findings: Present: Normal findings (empty filling ) Cervical Lymphadenopathy Present: No Facial Swelling Present: Yes (left ) Bleeding Present: No Oropharynx Findings: Absent: Clots, Active bleeding Septal Hematoma: No Foreign Body Present: No Dysphagia Present: No Drooling Present: No Asymmetrical Tonsillar Swelling Present: No Uvula Midline: No [place]-tonsillar Fluctuence: No Trismus Present: No Palatal Petechiae Present: No Scarlatinaform Rash Present: No Teeth Picture: 1 - filling missing Differential Diagnoses: Dental Caries, Fractured Tooth Review of Systems - Review Of Systems Constitutional: Reports: No symptoms Eyes: Reports: No symptoms Ears, Nose, Mouth, Throat: Reports: Mouth pain (right upper molar pain ) Respiratory: Reports: No symptoms Cardiac: Reports: No symptoms GI: Reports: No symptoms : Reports: No symptoms Musculoskeletal: Reports: No symptoms Skin: Reports: No symptoms Neurological: Reports: No symptoms Endocrine: Reports: No symptoms Hematologic/Lymphatic: Reports: No symptoms All Other Systems: Reviewed and Negative Past Medical History - Past Medical History Previously Healthy: Yes Endocrine: Reports: None Cardiovascular: Reports: None Respiratory: Reports: None Hematological: Reports: None Gastrointestinal: Reports: None Genitourinary: Reports: None Neuro/Psych: Reports: None Musculoskeletal: Reports: None Cancer: Reports: None Last Menstrual Period: 2 WEEKS AGO - Surgical History General Surgical History: Reports: None - Family History Family History: Reports: None - Social History Smoking Status: Current every day smoker, Light tobacco smoker Hx Substance Use: No Alcohol Screening: None - Immunizations Tetanus Shot up to Date: Yes Physical Exam - Physical Exam Appearance: Ill-appearing Ill-appearing: Moderate Pain Distress: Severe Eyes: CRISTINA, EOMI, Conjunctiva clear Neck: Supple Respiratory: Airway patent, Breath sounds clear, Breath sounds equal, Respirations nonlabored Cardiovascular: RRR, Pulses normal, No rub, No murmur GI/: Soft Musculoskeletal: Normal strength, ROM intact, No edema, No calf tenderness Skin: Warm, Dry, Normal color Neurological: Sensation intact, Motor intact, Reflexes intact, Cranial nerves intact, Alert, Oriented Psychiatric: Anxious Critical Care Note - Critical Care Note Total Time (mins): 0 Course - Course Orders, Labs, Meds: Orders Category Date Time Status Clindamycin HCl [Cleocin] MEDS 04/27/18 18:40 Stat 300 mg PO ONCE STA Hydromorphone HCl [Dilaudid 1 mg/ml Syringe] MEDS 04/27/18 18:39 Stat 1 mg IM ONCE STA Ibuprofen [Motrin] MEDS 04/27/18 18:39 Stat 800 mg PO ONCE STA Medications Generic Name Dose Route Start Last Admin Trade Name Freq PRN Reason Stop Dose Admin Clindamycin HCl 300 mg 04/27/18 18:40 Cleocin PO 04/27/18 18:41 ONCE STA Hydromorphone HCl 1 mg 04/27/18 18:39 Dilaudid 1 Mg/Ml Syringe IM 04/27/18 18:40 ONCE STA Ibuprofen 800 mg 04/27/18 18:39 Motrin PO 04/27/18 18:40 ONCE STA Vital Signs: Temp Pulse Resp BP Pulse Ox 04/27/18 17:56 97.4 F L 90 20 138/85 98 Departure - Departure Time of Disposition: 19:15 Disposition: HOME SELF-CARE Discharge Problem: Toothache Instructions: Toothache (ED) Condition: Fair Pt referred to PMD for follow-up: Yes IPMP verified?: No Additional Instructions: Take Medications as prescribed Follow up with your Dentist in 1-2 days Prescriptions: Hydrocodone Bit/Acetaminophen [[place] 5-325] 1 each PO Q6HR PRN #15 tablet PRN Reason: severe pain Clindamycin HCl 300 mg PO TID #30 capsule Ibuprofen [Motrin] 600 mg PO Q6H PRN #30 tablet PRN Reason: Analgesia Allergies/Adverse Reactions: Allergies ceftriaxone sodium [From Rocephin] Adverse Reaction (Verified 04/27/18 18:03) Swelling Home Medications: Ambulatory Orders Clindamycin HCl 300 mg PO TID #30 capsule 04/27/18 Hydrocodone Bit/Acetaminophen [[place] 5-325] 1 each PO Q6HR PRN #15 tablet Ibuprofen [Motrin] 600 mg PO Q6H PRN #30 tablet 04/27/18 Disposition Discussed With: Patient
== END 2018-04-27 19:11 | disposition home or self-care (01) ==
LOC: ED 17:56
DX: K08.89 Other specified disorders of teeth and supporting structures (principal); F17.210 Nicotine dependence, cigarettes, uncomplicated
CPT/HCPCS: 96372; 99282

== ENCOUNTER 2018-05-23 10:17 | Emergency (ER) ==
[2018-05-23 10:28] VITALS: BP 124/81; TEMP 98.5; BMI 25.6
--- NOTE | 2018-05-23 10:38 | ED.PDOC ---
General ED Provider: Dr. CASSY ESQUIVEL Chief Complaint: Urinary Problem Stated Complaint: Burning with urination. Time Seen by Physician: 10:20 Mode of Arrival: Walk-In Information Source: Patient Exam Limitations: No limitations Primary Care Provider: ARETHA MENDOZA Nursing and Triage Documentation Reviewed and Agree: Yes Does patient meet sepsis criteria?: No System Inflammatory Response Syndrome: Not Applicable Sepsis Protocol: For patient's 13 years and over: Temp is 96.8 and below OR 101 and greater Pulse >90 BPM Resp >20/minute Acutely Altered Mental Status Are patient's symptoms suggestive of a new infection, such as: -Pneumonia -Skin, Soft Tissue -Endocarditis -UTI -Bone, Joint Infection -Implantable Device -Acute Abdominal Infection -Wound Infection -Meningitis -Blood Stream Catheter Infection -Unknown Complaint Exam - UTI Female Complaint/Exam Patient Complains of: Reports: Painful urination Onset/Duration: early yesterday morning Symptoms Are: Worse Timing: Constant Initial Severity: Moderate Current Severity: Severe Location of Pain: Reports: Suprapubic Associated Signs and Symptoms: Denies: Fever, Chills, Flank pain, Vaginal discharge Related History: Denies: Similar episode Related Surgical History: Reports: None CVA Tenderness: No Suprapubic Tenderness: Yes Differential Diagnoses: Bladder Dysfunction Review of Systems - Review Of Systems Constitutional: Reports: No symptoms Eyes: Reports: No symptoms Ears, Nose, Mouth, Throat: Reports: No symptoms Respiratory: Reports: No symptoms Cardiac: Reports: No symptoms GI: Reports: No symptoms : Reports: No symptoms Musculoskeletal: Reports: No symptoms Skin: Reports: No symptoms Neurological: Reports: No symptoms Endocrine: Reports: No symptoms Hematologic/Lymphatic: Reports: No symptoms All Other Systems: Reviewed and Negative Past Medical History - Past Medical History Previously Healthy: Yes Endocrine: Reports: None Cardiovascular: Reports: None Respiratory: Reports: None Hematological: Reports: None Gastrointestinal: Reports: None Genitourinary: Reports: None Neuro/Psych: Reports: None Musculoskeletal: Reports: None Cancer: Reports: None Last Menstrual Period: 3 weeks ago - Surgical History General Surgical History: Reports: None - Family History Family History: Reports: None - Social History Smoking Status: Current every day smoker, Light tobacco smoker Hx Substance Use: No Alcohol Screening: None Physical Exam - Physical Exam Appearance: Ill-appearing, Obese Ill-appearing: Mild Pain Distress: Moderate Eyes: CRISTINA, EOMI, Conjunctiva clear ENT: Ears normal, Nose normal, Oropharynx normal Neck: Supple Respiratory: Airway patent, Breath sounds clear, Breath sounds equal, Respirations nonlabored Cardiovascular: RRR, Pulses normal, No rub, No murmur GI/: Soft, Tender Musculoskeletal: Normal strength, ROM intact, No edema, No calf tenderness Skin: Warm, Dry, Normal color Neurological: Sensation intact, Motor intact, Reflexes intact, Cranial nerves intact, Alert, Oriented Psychiatric: Affect appropriate, Mood appropriate Critical Care Note - Critical Care Note Total Time (mins): 0 Course - Course Hematology/Chemistry: 05/23/18 10:50 05/23/18 10:41 Orders, Labs, Meds: Lab Review 05/23/18 05/23/18 05/23/18 10:41 10:50 10:50 WBC 13.24 H RBC 4.32 Hgb 13.0 Hct 38.2 MCV 88.4 MCH 30.1 MCHC 34.0 RDW Coeff of Uday 12.6 Plt Count 291 Immature Gran % (Auto) 0.3 Neut % (Auto) 72.5 Lymph % (Auto) 17.1 [place]elope % (Auto) 6.8 Eos % (Auto) 3.1 Baso % (Auto) 0.2 Immature Gran # (Auto) 0.0 Neut # (Auto) 9.6 H Lymph # (Auto) 2.3 [place]elope # (Auto) 0.9 Eos # (Auto) 0.4 Baso # (Auto) 0.0 Sodium 140.2 Potassium 4.06 Chloride 103.0 Carbon Dioxide 30.2 H Anion Gap 11.06 BUN 11.8 Creatinine 0.79 Estimated GFR (MDRD) 83.00 BUN/Creatinine Ratio 14.93 Glucose 81.1 Calcium 8.79 Total Bilirubin 0.60 AST 25.0 ALT 13.2 Alkaline Phosphatase 60.0 Total Protein 6.88 Albumin 3.88 Globulin 3.00 Albumin/Globulin Ratio 1.29 Urine Color Urine Clarity Urine pH Ur Specific [place] Urine Protein Urine Glucose (UA) Urine Ketones Urine Blood Urine Nitrite Urine Bilirubin Urine Urobilinogen Ur Leukocyte Esterase Urine Microscopic RBC Urine Microscopic WBC Ur Squamous Epith Cells Urine Bacteria Urine Test Urine Opiates Screen Negative Ur Oxycodone Screen Negative Urine Methadone Screen Negative Ur Propoxyphene Screen Negative Ur Barbiturates Screen Negative U Tricyclic Antidepress Negative Ur Phencyclidine Scrn Negative Ur Amphetamine Screen Positive U Methamphetamines Scrn Positive U Benzodiazepines Scrn Negative Urine Cocaine Screen Negative U Cannabinoids Screen Positive 05/23/18 05/23/18 10:50 10:50 WBC RBC Hgb Hct MCV MCH MCHC RDW Coeff of Uday Plt Count Immature Gran % (Auto) Neut % (Auto) Lymph % (Auto) [place] % (Auto) Eos % (Auto) Baso % (Auto) Immature Gran # (Auto) Neut # (Auto) Lymph # (Auto) [place] # (Auto) Eos # (Auto) Baso # (Auto) Sodium Potassium Chloride Carbon Dioxide Anion Gap BUN Creatinine Estimated GFR (MDRD) BUN/Creatinine Ratio Glucose Calcium Total Bilirubin AST ALT Alkaline Phosphatase Total Protein Albumin Globulin Albumin/Globulin Ratio Urine Color [place] Urine Clarity Cloudy Urine pH 6.0 Ur Specific [place] 1.020 Urine Protein 3+ Urine Glucose (UA) Trace Urine Ketones Trace Urine Blood 3+ Urine Nitrite Positive Urine Bilirubin 1+ Urine Urobilinogen 4.0 Ur Leukocyte Esterase 3+ Urine Microscopic RBC Tntc Urine Microscopic WBC Tntc Ur Squamous Epith Cells 10-20 Urine Bacteria 2+ Urine Test Negative Urine Opiates Screen Ur Oxycodone Screen Urine Methadone Screen Ur Propoxyphene Screen Ur Barbiturates Screen U Tricyclic Antidepress Ur Phencyclidine Scrn Ur Amphetamine Screen U Methamphetamines Scrn U Benzodiazepines Scrn Urine Cocaine Screen U Cannabinoids Screen Orders Category Date Time Status CBC W/ AUTO DIFF Stat LAB 05/23/18 10:50 Completed CMP [COMPREHENSIVE METABOLIC PANEL] Stat LAB 05/23/18 10:41 Completed UA [URINALYSIS C & S IF INDICATED] Stat LAB 05/23/18 10:50 Completed URINE CULTURE Stat LAB 05/23/18 10:50 Received URINE DRUG SCREEN (RAPID FOR ED) [DRUG SCREEN, URINE, LAB 05/23/18 10:50 Completed RAPID] Stat URINE Stat LAB 05/23/18 10:50 Completed Ketorolac Tromethamine [Toradol] MEDS 05/23/18 11:37 Discontinued 10 mg PO ONCE STA Phenazopyridine HCl [Pyridium] MEDS 05/23/18 11:37 Discontinued 100 mg PO ONCE STA Medications Discontinued Medications Generic Name Dose Route Start Last Admin Trade Name Freq PRN Reason Stop Dose Admin Ketorolac Tromethamine 10 mg 05/23/18 11:37 Toradol PO 05/23/18 11:38 ONCE STA Phenazopyridine HCl 100 mg 05/23/18 11:37 Pyridium PO 05/23/18 11:38 ONCE STA Vital Signs: Temp Pulse Resp BP Pulse Ox 05/23/18 10:18 98.5 F 121 H 20 124/81 95 Departure - Departure Time of Disposition: 11:30 Disposition: HOME SELF-CARE Discharge Problem: UTI (urinary tract infection), Methamphetamine abuse Instructions: Urinary Tract Infection in Women (ED), Methamphetamine Abuse (ED) Condition: Fair Pt referred to PMD for follow-up: Yes (1 week) IPMP verified?: No Additional Instructions: Force clear liquids Take meds as directed Avoid substance abuse Follow up PCP 7 days Discussed result of lab and urine drug screen Admits to Cannabis use Advise Cannabis often laced with other substances and attempt to avoid using elicit substances of abuse. Consider Drug rehab Prescriptions: Nitrofurantoin Monohyd/M-Cryst [Macrobid 100 mg Capsule] 100 mg PO BID #20 capsule Phenazopyridine HCl [Pyridium] 100 mg PO TID #10 tablet Allergies/Adverse Reactions: Allergies ceftriaxone sodium [From Rocephin] Adverse Reaction (Verified 05/23/18 10:23) Swelling Home Medications: Ambulatory Orders Nitrofurantoin Monohyd/M-Cryst [Macrobid 100 mg Capsule] 100 mg PO BID #20 capsule 05/23/18 Phenazopyridine HCl [Pyridium] 100 mg PO TID #10 tablet 05/23/18 Disposition Discussed With: Patient (Discussed result of lab and urine drug screen)
[2018-05-23 11:09] LABS: URINE PREGNANCY TEST NEGATIVE (NEGATIVE)
[2018-05-23] MEDS: TORADOL PO STA (12:17)
[2018-05-23] MEDS: PYRIDIUM PO STA (12:17)
== END 2018-05-23 12:20 | disposition home or self-care (01) ==
LOC: ED 10:17
DX: N39.0 Urinary tract infection, site not specified (principal); F15.10 Other stimulant abuse, uncomplicated; F17.210 Nicotine dependence, cigarettes, uncomplicated
CPT/HCPCS: 36415; 80053; 80306; 81001; 81025; 85025; 87086; 87186; 99283

== ENCOUNTER 2018-07-26 12:30 | Inpatient (IN) ==
[2018-07-26 12:34] VITALS: BMI 24.7
[2018-07-26] MEDS ORDERED: ZOFRAN 4 MG/2 ML IVP STA ×2 (12:38→16:39)
[2018-07-26] MEDS ORDERED: MORPHINE 4 MG/ML SYRINGE IVP STA (12:38)
--- NOTE | 2018-07-26 14:16 | CT ---
EXAM: CT of the abdomen pelvis without contrast History: Left flank pain. Comparison: CT abdomen pelvis 05/26/2016 Technique: Multiplanar CT images through the abdomen pelvis were obtained without the administration of IV contrast Findings: Calcified granulomas seen within the right lower lung. No acute osseous abnormalities. No gallstones identified by CT. No focal liver or splenic lesions. No right renal calculi. 1 mm le ft renal calculus. There is stranding seen adjacent to the left kidney and tail of the pancreas. No hydronephrosis. No bowel obstruction. The appendix is normal. No bladder wall thickening. Adnexa l structures appear appropriate for patient's age. No perirectal inflammation. No free air and no a scites. Moderate colonic stool. Impression: 1. Stranding seen adjacent to the left kidney and pancreatic tail could be due to pyelonephritis or possible pancreatitis. An IV contrast examination could possibly help differentiate.
[2018-07-26] MEDS ORDERED: LEVAQUIN 500 MG in PREMIX 100 ML D5W 1 BAG IV STA (14:21)
[2018-07-26] MEDS ORDERED: AZACTAM 1 GM in SODIUM CHLORIDE 50 ML IV STA ×2 (14:21→16:39)
[2018-07-26] MEDS ORDERED: SODIUM CHLORIDE 1,000 ML IV STA (14:22)
[2018-07-26] MEDS ORDERED: LEVAQUIN 100 ML IV ONE (15:16)
--- NOTE | 2018-07-26 16:01 | CT ---
EXAM: CT ABDOMEN AND PELVIS HISTORY: Abdominal pain, clinical concern for pancreatitis versus pyelonephritis TECHNIQUE: CT abdomen and pelvis with intravenous contrast. Images were reconstructed using 5 mm se ction thickness. Reformations were prepared. 75 mL Omnipaque. COMPARISON: 05/26/2016 FINDINGS: Liver and spleen appear normal. Gallbladder is within normal limits. Pancreas appears grossly tenzin l. Normal adrenal glands. Normal enhancement of the kidneys with no perinephric fat stranding or hy dronephrosis. Normal abdominal aorta. Stomach appears normal. Portions of a normal appearing appendix are seen. Bowel gas pattern is with in normal limits. Uterus and urinary bladder appear normal. There is no ascites. Ventral abdominal wall is intact without herniation. Bones appear appropriate for age. Lung bases a re clear. There is no pneumoperitoneum. IMPRESSION: No acute intra-abdominal, pelvic abnormality identified by CT.
--- NOTE | 2018-07-26 16:33 | ED.PDOC ---
General ED Provider: Dr. TONYA CACERES Chief Complaint: Back Pain Stated Complaint: LEFT FLANK PAIN SUDDEN ONSET Time Seen by Physician: 12:38 (RN PRESENT AT ALL TIMES ) Mode of Arrival: Walk-In Information Source: Patient Exam Limitations: No limitations Nursing and Triage Documentation Reviewed and Agree: Yes Does patient meet sepsis criteria?: No System Inflammatory Response Syndrome: Not Applicable Sepsis Protocol: For patient's 13 years and over: Temp is 96.8 and below OR 101 and greater Pulse >90 BPM Resp >20/minute Acutely Altered Mental Status Are patient's symptoms suggestive of a new infection, such as: -Pneumonia -Skin, Soft Tissue -Endocarditis -UTI -Bone, Joint Infection -Implantable Device -Acute Abdominal Infection -Wound Infection -Meningitis -Blood Stream Catheter Infection -Unknown Miscellaneous Complaint Exam - Complex/Multi-System Complaint/Exam Symptoms Are: Still present Episodes Lasting: Hours Initial Severity: Severe Current Severity: Severe Location of Pain: LEFT FLANK Pain Radiates to: LOWER ABDOMEN LEFT Character: SHARP Aggravating: WALKING URINATION Alleviating: PAIN MEDS Associated Signs and Symptoms: Reports: Back pain, Dysuria. Denies: Decreased responsiveness, Confusion, Agitation, Dizziness, Weakness, Syncope, Headache, Short of air, Cough, Wheezing, Hemoptysis, Chest pain, Palpitations, Edema, Nausea, Vomiting, Diarrhea, Abdominal pain, Hematemesis, Melena, Decreased oral intake, Fever, Diaphoresis, Immunocompromised, Anticoagulation Therapy, Recent medication changes, Indwelling medical field representative, Prior MRSA, Prior VRE, Recent trauma, Remote trauma Recent Echo/LV Function: No Respiratory Distress: None JVD Present: No Tachypnea Present: No Stridor Present: No Glascow Coma Scale (see protocol): 15 Meningeal Signs Positive: No Focal Weakness: Present: None Focal Sensory Loss: Present: None Gait: Normal Gag Reflex Present: Yes Differential Diagnosis: UTI Review of Systems - Review Of Systems Constitutional: Reports: No symptoms Eyes: Reports: No symptoms Ears, Nose, Mouth, Throat: Reports: No symptoms Respiratory: Reports: No symptoms Cardiac: Reports: No symptoms GI: Reports: Abdominal pain : Reports: No symptoms Musculoskeletal: Reports: Back pain Skin: Reports: No symptoms Neurological: Reports: No symptoms Endocrine: Reports: No symptoms Hematologic/Lymphatic: Reports: No symptoms All Other Systems: Reviewed and Negative Past Medical History - Past Medical History Previously Healthy: Yes Endocrine: Reports: None Cardiovascular: Reports: None Respiratory: Reports: None Hematological: Reports: None Gastrointestinal: Reports: None Genitourinary: Reports: None Neuro/Psych: Reports: None Musculoskeletal: Reports: None Cancer: Reports: None Last Menstrual Period: [id number] - Surgical History General Surgical History: Reports: None - Family History Family History: Reports: None - Social History Smoking Status: Current every day smoker, Light tobacco smoker Hx Substance Use: No Alcohol Screening: None - Immunizations Tetanus Shot up to Date: No Physical Exam - Physical Exam Appearance: Well-appearing, No pain distress, Well-nourished Eyes: CRISTINA, EOMI, Conjunctiva clear ENT: Ears normal, Nose normal, Oropharynx normal Respiratory: Airway patent, Breath sounds clear, Breath sounds equal, Respirations nonlabored Cardiovascular: RRR, Pulses normal, No rub, No murmur GI/: Soft, Nontender, No masses, Bowel sounds normal, No Organomegaly Musculoskeletal: Normal strength (LEFT FLANK PAIN), ROM intact, No edema, No calf tenderness Skin: Warm, Dry, Normal color Neurological: Sensation intact, Motor intact, Reflexes intact, Cranial nerves intact, Alert, Oriented Psychiatric: Affect appropriate, Mood appropriate Interpretation - Radiology Interpretation Radiology Interpretation By: Radiologist Radiology Results: Positive (PYLO) Re-Evaluation - Re-Evaluation Time of Re-Evaluation: 14:00 Status: Improved Vital Signs Stable: Yes Pain Level: 3/10 Appearance: NAD Lungs: Clear Skin: Warm and Dry Neuro: Alert and Oriented X3 CV: RRR - Re-Evaluation Time of Re-Evaluation: 16:34 Status: Improved Vital Signs Stable: Yes Appearance: NAD Skin: Warm and Dry Neuro: Alert and Oriented X3 CV: RRR Physician Notification - Case Discussed Physician Notified: BERNICE Time of Notification: 16:35 Critical Care Note - Critical Care Note Total Time (mins): 0 Course - Course Hematology/Chemistry: 07/26/18 12:44 07/26/18 12:44 Orders, Labs, Meds: Lab Review 07/26/18 07/26/18 07/26/18 12:44 12:44 12:44 WBC 14.72 H RBC 4.80 Hgb 14.5 Hct 43.6 MCV 90.8 MCH 30.2 MCHC 33.3 RDW Coeff of Uday 12.7 Plt Count 285 Immature Gran % (Auto) 0.3 Neut % (Auto) 81.3 Lymph % (Auto) 11.5 [place] % (Auto) 4.2 Eos % (Auto) 2.4 Baso % (Auto) 0.3 Immature Gran # (Auto) 0.1 Neut # (Auto) 12.0 H Lymph # (Auto) 1.7 [place] # (Auto) 0.6 Eos # (Auto) 0.4 Baso # (Auto) 0.0 Sodium 136.1 Potassium 3.62 Chloride 102.7 Carbon Dioxide 25.6 Anion Gap 11.42 BUN 10.4 Creatinine 0.82 Estimated GFR (MDRD) 79.00 BUN/Creatinine Ratio 12.68 Glucose 85.5 Lactic Acid Calcium 9.10 Total Bilirubin 0.60 AST 24.2 ALT 16.6 Alkaline Phosphatase 67.3 Total Protein 7.01 Albumin 4.41 Globulin 2.60 Albumin/Globulin Ratio 1.69 Amylase Lipase Procalcitonin Serum , Qual Negative Urine Color Urine Clarity Urine pH Ur Specific [place] Urine Protein Urine Glucose (UA) Urine Ketones Urine Blood Urine Nitrite Urine Bilirubin Urine Urobilinogen Ur Leukocyte Esterase Urine Microscopic RBC Urine Microscopic WBC Ur Squamous Epith Cells Urine Mucus 07/26/18 07/26/18 07/26/18 12:44 12:44 14:10 WBC RBC Hgb Hct MCV MCH MCHC RDW Coeff of Uday Plt Count Immature Gran % (Auto) Neut % (Auto) Lymph % (Auto) [place] % (Auto) Eos % (Auto) Baso % (Auto) Immature Gran # (Auto) Neut # (Auto) Lymph # (Auto) [place] # (Auto) Eos # (Auto) Baso # (Auto) Sodium Potassium Chloride Carbon Dioxide Anion Gap BUN Creatinine Estimated GFR (MDRD) BUN/Creatinine Ratio Glucose Lactic Acid Calcium Total Bilirubin AST ALT Alkaline Phosphatase Total Protein Albumin Globulin Albumin/Globulin Ratio Amylase 68.9 Lipase 29.4 Procalcitonin 2.90 Serum , Qual Urine Color Yellow Urine Clarity Cloudy Urine pH 7.5 Ur Specific [place] 1.020 Urine Protein 3+ Urine Glucose (UA) Negative Urine Ketones Negative Urine Blood 3+ Urine Nitrite Positive Urine Bilirubin Negative Urine Urobilinogen 0.2 Ur Leukocyte Esterase 2+ Urine Microscopic RBC 10-20 Urine Microscopic WBC 50-100 Ur Squamous Epith Cells 2-5 Urine Mucus Trace 07/26/18 14:55 WBC RBC Hgb Hct MCV MCH MCHC RDW Coeff of Uday Plt Count Immature Gran % (Auto) Neut % (Auto) Lymph % (Auto) [place] % (Auto) Eos % (Auto) Baso % (Auto) Immature Gran # (Auto) Neut # (Auto) Lymph # (Auto) [place] # (Auto) Eos # (Auto) Baso # (Auto) Sodium Potassium Chloride Carbon Dioxide Anion Gap BUN Creatinine Estimated GFR (MDRD) BUN/Creatinine Ratio Glucose Lactic Acid 0.75 Calcium Total Bilirubin AST ALT Alkaline Phosphatase Total Protein Albumin Globulin Albumin/Globulin Ratio Amylase Lipase Procalcitonin Serum , Qual Urine Color Urine Clarity Urine pH Ur Specific [place] Urine Protein Urine Glucose (UA) Urine Ketones Urine Blood Urine Nitrite Urine Bilirubin Urine Urobilinogen Ur Leukocyte Esterase Urine Microscopic RBC Urine Microscopic WBC Ur Squamous Epith Cells Urine Mucus Orders Category Date Time Status ED IV/MEDIPORT/POWERPORT .ONCE EMERGENCY 07/26/18 12:37 Active AMYLASE Stat LAB 07/26/18 12:44 Completed BLOOD CULTURE Stat LAB 07/26/18 14:41 Received CBC W/ AUTO DIFF Stat LAB 07/26/18 12:44 Completed COMPREHENSIVE METABOLIC PANEL Stat LAB 07/26/18 12:44 Completed LACTIC ACID Stat LAB 07/26/18 14:55 Completed LIPASE Stat LAB 07/26/18 12:44 Completed PROCALCITONIN Stat LAB 07/26/18 12:44 Completed SERUM Stat LAB 07/26/18 12:44 Completed URINALYSIS C & S IF INDICATED Stat LAB 07/26/18 14:10 Completed URINE CULTURE Stat LAB 07/26/18 14:10 Received 0.9 % Sodium Chloride [Saline Flush] MEDS 07/26/18 12:37 Active 1 syr IVF PRN PRN Levofloxacin/D5w [Levaquin] 100 ml MEDS 07/26/18 15:16 Discontinued IV .STK-MED Levofloxacin/D5w [Levaquin] 500 mg MEDS 07/26/18 14:21 Discontinued Premix 100 ml D5w 1 bag IV ONCE Morphine Sulfate [Morphine 4 mg/ml Syringe] MEDS 07/26/18 12:38 Discontinued 4 mg IVP ONCE STA Ondansetron HCl/Pf [Zofran 4 mg/2 ml] MEDS 07/26/18 12:38 Discontinued 4 mg IVP ONCE STA Sodium Chloride 0.9% [Sodium Chloride] 1,000 ml MEDS 07/26/18 14:22 Active IV 125 mls/hr CT ABD/PEL WO RENAL STONE PROT Stat RADS 07/26/18 12:[address] ABDOMEN/PELVIS W CONTRAST Stat RADS 07/26/18 14:54 Completed Medications Generic Name Dose Route Start Last Admin Trade Name Freq PRN Reason Stop Dose Admin Sodium Chloride 1,000 mls @ 125 mls/hr 07/26/18 14:22 07/26/18 15:28 Sodium Chloride IV 07/26/18 22:21 125 mls/hr .Q8H STA Administration Sodium Chloride 1 syr 07/26/18 12:37 07/26/18 13:13 Saline Flush IVF 1 syr PRN PRN Administration To flush IV Discontinued Medications Generic Name Dose Route Start Last Admin Trade Name Freq PRN Reason Stop Dose Admin Levofloxacin/Dextrose 500 mg/ 100 mls @ 100 mls/hr 07/26/18 14:21 07/26/18 15 :28 Dextrose IV 07/26/18 15:20 100 mls/hr ONCE STA Administration Morphine Sulfate 4 mg 07/26/18 12:38 07/26/18 13:13 Morphine 4 Mg/Ml Syringe IVP 07/26/18 12:39 4 mg ONCE STA Administration Ondansetron HCl 4 mg 07/26/18 12:38 07/26/18 13:13 Zofran 4 Mg/2 Ml IVP 07/26/18 12:39 4 mg ONCE STA Administration Vital Signs: Temp Pulse Resp BP Pulse Ox 07/26/18 12:31 99.1 F 112 H 20 120/78 100 Departure - Departure Time of Disposition: 16:35 Disposition: ADMITTED INPATIENT Discharge Problem: Backache, Pyelonephritis Instructions: Urinary Tract Infection in Women (ED) Condition: Good Pt referred to PMD for follow-up: Yes IPMP verified?: No Additional Instructions: Please call your Family Physician as soon as possible to schedule a follow-up appointment. Allergies/Adverse Reactions: Allergies ceftriaxone sodium [From Rocephin] Adverse Reaction (Verified 07/26/18 12:34) Swelling Home Medications: Ambulatory Orders 1 [No Reported Medications] 07/26/18 Disposition Discussed With: Patient
[2018-07-26] MEDS ORDERED: MORPHINE 2 MG/ML SYRINGE IVP STA (16:38)
[2018-07-26] MEDS ORDERED: AZACTAM ONE (19:49)
[2018-07-26] MEDS ORDERED: GENTAMICIN SULFATE ONE (21:40)
[2018-07-26] MEDS: DILAUDID 1 MG/ML SYRINGE IVP PRN (22:02)
[2018-07-26] MEDS: GENTAMICIN SULFATE 80 MG in SODIUM CHLORIDE 50 ML IV SCH (22:39)
[2018-07-27] MEDS: DILAUDID 1 MG/ML SYRINGE IVP PRN ×5 (01:10→21:15)
[2018-07-27] MEDS: SODIUM CHLORIDE 1,000 ML IV SCH ×2 (04:00→12:04)
[2018-07-27] MEDS ORDERED: GENTAMICIN SULFATE ONE (04:23)
[2018-07-27] MEDS: GENTAMICIN SULFATE 80 MG in SODIUM CHLORIDE 50 ML IV SCH ×3 (04:27→20:49)
[2018-07-27] MEDS ORDERED: DEXTROSE 5%-LR IV SOLUTION 1,000 ML IV SCH (17:00)
[2018-07-27 21:56] VITALS: BP 114/75; TEMP 100.2
--- NOTE | 2018-07-29 11:15 | PN ---
DATE OF SERVICE: 07/26/18 HISTORY OF PRESENT ILLNESS: The patient told me that she began experiencing burning sensation on urination at the beginning of the urination. She also doesn't have any control meaning she has an urgency as well as frequency. She denied any chills. She came to the emergency room because of the pain in the back. I asked her to point out and the pain is in the lower lumbar about level of L3 down to the sacrum. LUNGS: Clear to auscultation on both sides. HEART: Normal sinus rhythm EYES: Pupils 3mm in size. LOWER EXTREMITIES: No tenderness in the calf muscles. Pedal pulses are present. I tell the patient that she was also in the emergency room and she remembers in May and she has the same problems as it is now and she was discharged and treated orally with Nitrofurantoin 100mg twice a day. I asked her how many days did it take for the problem to improve and she told me two days. I also mentioned that in the admission she was positive on drugs screen for amphetamine and methamphetamine as well cannabinoid. She is also positive today for the same. She told initially that she doesn't take Meth or drugs. She later admitted that she indeed she does take it but not regularly. This patient claimed that the Morphine did not help her. She was given 4mg and 2mg in the emergency room. This patient will be given Dilaudid 1mg intervenously Q 3 hours PRN. I will repeat the procalcitonin tomorrow and probably x-ray the lumbar spine since it is tender. The patient's EGFR is 79. WBC 14,500, Lactic acid 0.75 normal, procalcitonin elevated 2.90. Serum test is negative. Urinalysis abnormal 3+ blood, 3+ protein, 2+ Leukocyte esterase, positive Nitrate, WBC 50-100, RBC 10-20 and Squamous Epith 2 -5. The patient's urine previous did grow e-coli sensitive to a host of medications including Levofloxacin and the patient did received 500mg in the emergency room. Also indicated that the patient was given Aztreonam was just initiated about 9:00 this evening. Medications had been discontinued. The patient will be placed on Gentamicin 80mg Q 8 hours and begin at 5:00 in the morning. A CBC and CMP will be repeated as well as urinalysis in the morning and Procalcitonin. Quantitative drug levels for positive levels was requested both serum and urine. The urine drug test is presumptively positive for amphetamine and methamphetamine and Cannabinoids. Urine drug screen was done from the emergency room urine sample. The patient reported no medication but she is positive for opioids. I do not know what opioid it is. Again, I asked a quantitative determine of all that were positive in the urine screen. MTDD
--- NOTE | 2018-07-30 13:53 | HP ---
DATE OF SERVICE: 07/26/18 CHIEF COMPLAINT: Burning on urination at the beginning of urination. HISTORY OF PRESENT ILLNESS: The patient claimed that she experienced burning on urination the day before and it only happens at the start of urination. Denied any chills. She did complain of pain and was listed as flank pain radiating to the front. When I came to her room with Sheldon Phelan, I did ask her about the pain and she pointed to her back about the level of the L3 based upon location of the posterior and anterior superior iliac spine. It radiates or extended down to the sacrum towards the coccyx. Lungs are clear. Heart has normal sinus rhythm. Abdomen nontender. Pedal pulses present. This patient reported no medication from home. She was given Aztreonam in the emergency room as well as Levofloxacin. She mentioned that the Morphine that was given in the emergency room did not help. She was given initially 4 mg and repeated with 2 mg. Levofloxacin and Aztreonam was given as one dose so the patient was given Gentamicin 80 mg every 8 hours. Medication was chosen based upon her previous urine culture as well as blood culture. ER physician recommended admission and the patient was then admitted with a diagnosis of urinary tract infection. Urine culture plus blood cultures were done. The patient was admitted to this hospital on 05/26/16 because of pyelonephritis. The patient's urine was abnormal and did culture E. coli as well as a blood culture. The patient was given Primaxin during that admission as well as Toradol, Demerol, Bomoseen, Dilaudid and Morphine. She had attempted suicide at age 16, cut her wrist. The patient was noted to be on 12/20/16 by serum test and followed by ultrasound. She did come to the emergency room for allergies, one with Rocephin producing hives. Also another episode of emergency room visit for allergies secondary to Topamax. The symptom noted was itching and burning. The patient claimed to have had migraine headaches, history of kidney stones and ADD. The patient on review of records had been on Adderral until about 2016. FAMILY HISTORY: HIstory of diabetes in the father's family. No other diseases. SOCIAL HISTORY: The patient is single and listed no next of kin. Also noted that she does not have any doctor. She does admit to smoking. MEDICATIONS: (PRIOR TO ADMISSION) No reported medications. ALLERGIES: CEFTRIAXONE PRODUCING HIVES, TOPAMAX PRODUCING ITCHING AND BURNING SENSATION. BOTH TIMES THE PATIENT WAS SEEN AT THE EMERGENCY ROOM AT [facility]. REVIEW OF SYSTEMS: CONSTITUTIONAL: The patient has low grade fever. The patient had chills or chilly sensation. Pain in the back. She pointed to me the lower back rather than the flank. This area was also tender to touch. The pain in the back had no radiation to the lower extremities. JAVA PROJECT MANAGER: The patient is alert and has a history of migraine headache but denies any syncopal episode or seizure event. VISUAL: Denies any blurred vision, double vision or loss of vision. AUDITORY: Hearing is adequate. She answers questions. Denies any tinnitus, pain or drainage. RESPIRATORY: No shortness of breath. No repetitive cough. The patient did not cough while I was in the room. CARDIOVASCULAR: Denies any chest pain or chest tightness. GASTROINTESTINAL: The patient had some nausea, no vomiting, no diarrhea. GENITOURINARY: Burning on urination with some urgency and frequency. The patient claimed that she is not able to control if she feels like urinating then she has to urinate right away. The burning is at the beginning of urination. MUSCULOSKELETAL: The patient compmlaining of pain in the back about the level of L3 down to the sacrum toward the coccyx. This area seemed to be sensitive to palpation. There is no redness. The pain the back does not have any particular radiation. INTEGUMENT: No rash or pruritus. There is no visible ecchymosis. ENDOCRINE: Negative. HEMATOLOGIC: No history of prolonged bleeding or spontaneous bleeding. PSYCHIATRIC: The patients affect seems to be down or she just does not want to talk. She did answer questions and follow commands. The patient had history of suicidal attempts 17 years ago. PHYSICAL EXAMINATION: GENERAL: 33-year-old female admitted to the hospital via the emergency room with complaint of pain in the left flank radiating toward the lower abdomen with some burning on urination. The patient's urine was abnormal, 1+ protein, 3+ blood, positive nitrite, 2+ leukocyte esterase, 10 to 20 RBC, 50 to 100 WBC, 2 to 5 squamous cells. Procalcitonin 2.90. qualitative negative. The patient had a CT scan of the abdomen and pelvis 07/26/[address] scan 2016. Stranding adjacent to the kidney. Pancreatic tail ould be due to pyelonephritis or possible pancreatitis and intravenous contrast examination could possibly help. CT scan of the abdomen and pelvis was then subsequently done with contrast. The impression is no acute intraabdominal pelvic abnormalities. The pancreas appears normal enhancement of the kidneys with no perinephric stranding or hydronephrosis, normal abdominal aorta. This is a 33-year-old female admitted to the hospital via the emergency room because of urinary tract infection, abnormal urinalysis, low grade temperature and leukocytosis. The patient was examined in the presence of Sheldon Phelan. Also asked Sheldon to record the findings. HEAD: Unremarkable. Scalp no active dermatitis. Face is symmetrical and equal with no facial weakness. EYES: Pupils equal/reactive to light about 3 mm in size. Conjunctivae not pale. Sclerae not icteric. THROAT: No inflammation, tumors or exudate. NECK: No masses. No bruit. No tenderness. No rigidity. CHEST: Symmetrical and equal with good expansion. LUNGS: Breath sounds are heard on both sides. No rales or wheezing. BREASTS: Not examined. HEART: Audible and regular with good tones. No murmurs. ABDOMEN: Soft with no remarkable tenderness. LOWER BACK: Tender. The patient points to the area in the mid back about L3 level extending down to the sacrum toward the coccyx. No radiation of the pain. LOWER EXTREMITIES: Symmetrical and equal with no tenderness in the calf muscles. Pedal pulses are absent. UPPER EXTREMITIES: Symmetrical and equal. ASSESSMENT: 1. URINARY TRACT INFECTION 2. PREVIOUS ADMISSION WITH DIAGNOSIS OF PYELONEPHRITIS 05/26/16 GROWING E. COLI ON URINE WELL BLOOD. 3. HISTORY OF QUESTIONABLE PNEUMONIA ADMITTED TO THE HOSPITAL, SIGNED OUT AGAINST MEDICAL ADVICE. 4. HISTORY OF ADD NOT ON ANY MEDICATION. 5. HISTORY OF ON EMERGENCY ROOM VISIT 12/20/16. 6. HISTORY OF ALLERGY, ROCEPHIN - HIVES; TOPAMAX- ITCHING AND BURNING. 7. URINE DRUG SCREEN POSITIVE FOR AMPHETAMINE AND METHAMPHETAMINE, CANNABINOIDS AND OPIATES. TIME SPENT: GREATER THAN 65 MINUTES MTDD
--- NOTE | 2018-07-30 14:52 | DS ---
DATE OF SERVICE: 07/27/18 - The patient signed out of the hospital against medical advice. PATIENT IDENTIFICATION: [id number]-old female who was admitted on 07/26/18 because of pain on urination, abnormal urinalysis and low grade temperature. The patient had a previous episode of the same. The CT scan of the abdomen and pelvis without contrast initially showed possible stranding of the left kidney and maybe the tail of the pancreas. That more or less had the same findings on 2017. Repeat CT scan of the abdomen and pelvis as recommended by the radiologist showed no perinephric stranding of the left kidney nor any involvement of the pancreas. The patient was alert and responsive but no eye contact. Lungs were clear to auscultation. Heart normal sinus rhythm, slightly tachycardic at times. Abdomen nontender. The patient has pain in the lower lumbar about L3 extending down to the sacrum towards the coccyx. This was the area of pain but no radiation to the lower extremities. She was touchy or tender to touch. There was no redness. The patient did receive Aztreanam in the emergency room as well as Levofloxacin. These medications were not continued. Levofloxacin in particular. This patient was then given Gentamicin after reviewing the previous results of her urinalysis. The patient the following day had a temperature rise as high as 102. That began the early childhood director of . Finally, came down to 99.9 at 2 p.m. 07/27/18. The temperature was as high at 102.9. Pulse rate has increased from 111 to 121. The patient on followup remained alert and responded to verbal questioning and verbal commands. The patient still does not have any eye contact. Last vital signs recorded at 5:10 p.m. showed a temperature of 97.6, pulse rate or 96, blood pressure 87/59 but was 120/78 previously. Respiratory rate 16. Oxygen saturation 98 on room air. The patient was examined later with Ellen Mcgovern and the patient was in no acute respiratory distress. She still has pain. She ate 50% of breakfast, 40% at lunch, and 50% in the evening. We had talked to her about the positive blood culture test. The patient had not expressed any opinion at that time whether she wants to go home or not. The only question she had when I talked to her about the urine culture and blood culture was whether she had sepsis or not. I told her that she has a serious infection but she is not in sepsis or septic shock. The problem is very serious since the bacteria has invaded the blood. While on the way home, I got a call from the hospital, a nurse, Kell Gardner, told me that the patient is going to sign out. I told her that she needed to have a medication in spite of the fact that she is going to sign out since she has a serious problem and would probably give Macrobid 100 mg twice a day with the medication given to her previously with the urinary tract infection. I turned around without getting to my residence, probably between 5 and 7 minutes that I got back to the hospital. The nurse, Kell Gardner, told the patient I will be coming back and also Patti Galo told the patient that I am coming back. When I came back to the hospital, Kell Gardner RN told me the patient was in the lobby. I did request her to go and see and asked the patient to come back to the room so I can talk to her and write the prescription if she would not change her mind. I came back and told me she could not find the patient in the lobby or towards the emergency room. She also told me that the patient mentioned that she will just come back tomorrow for the prescription. FINAL DIAGNOSES: 1. URINARY TRACT INFECTION, E. COLI 2. BACTEREMIA, FABIOLA URINARY TRACT INFECTION, E. COLI The patient left the hospital against medical advice and did not even wait for the prescription to be given or written in a matter of several minutes only. TIME SPENT: GREATER THAN 30 MINUTES MTDD
--- NOTE | 2018-07-31 09:34 | PN ---
DATE OF SERVICE: 07/27/18 SUBJECTIVE: I made rounds with Ellen Mcgovern RN. The patient still complaining of pain and she did receive one dose of the Dilaudid. The patient had been running a temperature and had been advised by the nurse Ellen Mcgovern. Temperature did register at 4:49 in the morning at 101.4 and 6:15 in the morning at 102.9. The patient also had a temperature of 102.3 at 1:40pm. At the 2:00pm the temperature was 99.9 and about 9:00pm it was 100.2. Pulse is below 100. The patient is alert and oriented during the visit. I advised the patient that her urine culture showed e-coli and that also showed in her blood. She then asked whether she had sepsis and I told her No she did not have all the signs of sepsis at this time. Her respiratory rate is 20, blood pressure is beyond 100 but the blood did grow bacteria,the same bacteria that was in the urine and it is a serious problem. I do not have the DUGLAS at this point in time or the ID except for that it is positive. based upon the previous admission urinary tract infection and it is most likely the same bacteria. The bacteria was sensitive to the medications that were given initially and it is also sensitive to Gentamicin. LUNGS: Clear to auscultation, both sides HEART: Normal sinus rhythm LEGS: No tenderness The patient was informed that her temperature is coming down and the repeat blood test had showed a decreased white cell count from 14,720 down to 10,680. The patient procalcitonin has come down to 1.12 from 2.9. Repeat urinalysis now shows +1 blood, nitrate negative now and leukocyte esterase is down to 1+ from 2 +, RBC down to 2-5 from 10-20, WBC down to 10-20 from 50-100. Squamous Epith cell 2-5. 1+ urine bacteria. The patient has pain medication ordered every three hours consisting of Dilaudid 1mg intervenously. MTDD
== END 2018-07-27 22:00 | disposition left against medical advice (07) | DRG 690 ==
LOC: ED 12:30 → MEDSURG A 16:43
PROVIDERS: ADMIT General Practice; ATTEND General Practice
DX: N12 Tubulo-interstitial nephritis, not specified as acute or chronic (principal); R78.81 Bacteremia; N39.0 Urinary tract infection, site not specified; B96.20 Unspecified Escherichia coli [E. coli] as the cause of diseases classified elsewhere; R30.9 Painful micturition, unspecified; R10.9 Unspecified abdominal pain; R30.0 Dysuria; Z72.0 Tobacco use
CPT/HCPCS: 36415; 74176; 80053; 80306; 81001; 82150; 83605; 83690; 84145; 84703; 85025; 87040; 87070; 87086; 87186; 96365; 96372; 96375; 99284

== ENCOUNTER 2021-09-05 10:57 | Observation (INO) ==
--- NOTE | 2021-09-05 11:01 | ED.PDOC ---
General ED Provider: Dr. FANNY MONTEZ MD Chief Complaint: Abdominal Pain Stated Complaint: Patient presents with a 4 day history of bilateral lower quadrant pain that is described as intermittent, sharp, nonradiating and rated at a 10/10. She has a history of constipation and her last BM was 4 days ago. Patient also complains of nausea and 2 episodes of emesis. She took a stool softener and has had no relief. Patient denies fever, chills, weakness, body aches, cough, dyspnea, hematemesis, melena, diarrhea, hematochezia or urinary tract symptoms. She has continued to eat, drink fluids and urinate. Time Seen by Provider: 09/05/21 10:59 Exam Limitations: No limitations Nursing and Triage Documentation Reviewed and Agree: Yes Does patient meet sepsis criteria?: No System Inflammatory Response Syndrome: Not Applicable Sepsis Protocol: For patient's 13 years and over: Temp is 96.8 and below OR 101 and greater Pulse >90 BPM Resp >20/minute Acutely Altered Mental Status Are patient's symptoms suggestive of a new infection, such as: -Pneumonia -Skin, Soft Tissue -Endocarditis -UTI -Bone, Joint Infection -Implantable Device -Acute Abdominal Infection -Wound Infection -Meningitis -Blood Stream Catheter Infection -Unknown GI Complaint Exam Abdominal Pain Complaint/Exam Onset: Gradual Duration: 4 days Symptoms Are: Worse Timing: Intermittent Initial Severity: Mild Current Severity: Severe Location of Pain: RLQ and LLQ Character: Reports Sharp Aggravating: Reports None Alleviating: Reports None Associated Signs and Symptoms: Reports Constipation, Nausea and Vomiting Related History: Reports Similar episode AAA Risk Factors: Reports None Cardiac Risk Factors: Reports None Ectopic Risk Factors: Reports None Ovarian Torsion Risk Factors: Reports Reproductive age Surgical Obstruction Risk Factors: Reports None Related Surgical History: Reports None Abdominal Findings: Present None Review of Systems Review Of Systems Constitutional: Reports No symptoms Eyes: Reports No symptoms Ears, Nose, Mouth, Throat: Reports No symptoms Respiratory: Reports No symptoms Cardiac: Reports No symptoms GI: Reports Abdominal pain, Constipated, Nausea and Vomiting : Reports No symptoms Musculoskeletal: Reports No symptoms Skin: Reports No symptoms Neurological: Reports No symptoms Endocrine: Reports No symptoms Hematologic/Lymphatic: Reports No symptoms All Other Systems: Reviewed and Negative [facility] Medical History ADHD (attention deficit hyperactivity disorder) Apical granuloma Family History Grandfather/Grandmother Type 1 diabetes mellitus Social History Smoking and tobacco status: Current every day smoker History of recent travel: No Surgical History History of gynecological procedure Female Reproductive History Menstrual Hx Hysterectomy: No Hx Tubal Ligation: No Physical Exam Physical Exam Appearance: Reports Well-nourished and Other (Patient lying on stretcher mo aning. Her behavior seems out of proportion to her physical appearance.) Ill-appearing: Mild Pain Distress: Mild Eyes: Reports CRISTINA, EOMI and Conjunctiva clear ENT: Reports Nose normal and Oropharynx normal (Oral mucosa moist.) Neck: Supple Respiratory: Reports Airway patent, Breath sounds clear and Breath sounds equal Cardiovascular: Reports RRR, No rub and No murmur GI/: Reports Soft, No masses and Tender (Bilateral lower quadrant tenderness that is mild. No peritoneal signs. Nondistended.) Musculoskeletal: Reports Normal strength and No edema Skin: Reports Warm, Dry and Normal color Neurological: Reports Sensation intact, Motor intact, Cranial nerves intact, Alert and Oriented Psychiatric: Reports Affect appropriate and Mood appropriate Interpretation Radiology Interpretation Radiology Interpretation By: Radiologist Exam Interpreted: CXR (no acute cardiopulmonary findings) and CT Scan (CT abd/pe lvis without acute finding) Xray Comments: KUB with gas and stool throughout colon, nonobstructive pattern Re-Evaluation Re-Evaluation Time of Re-Evaluation: 17:05 Vital Signs Stable: Yes Pain Level: Pain persists, though is somewhat improved. Additional Comments: Mild bilateral lower quadrant tenderness without peritoneal signs. No CVA tenderness. Critical Care Note Critical Care Note Total Critical Care Time (mins): 0 Course Course Hematology/Chemistry: 09/05/21 16:49 09/05/21 12:02 Orders, Labs, Meds: Lab Review 09/05/21 09/05/21 09/05/21 11:55 11:55 12:02 WBC 29.57 H RBC 4.54 Hgb 13.8 Hct 39.6 MCV 87.2 MCH 30.4 MCHC 34.8 RDW Coeff of Uday 12.0 Plt Count 292 Immature Gran % (Auto) 1.5 Neut % (Auto) 77.3 H Lymph % (Auto) 3.1 L Mcmullen % (Auto) 2.0 Eos % (Auto) 16.0 H Baso % (Auto) 0.1 Neut # (Auto) 22.9 H Lymph # (Auto) 0.9 Mcmullen # (Auto) 0.6 Eos # (Auto) 4.7 H Baso # (Auto) 0.0 Immature Gran # (Auto) 0.4 Sodium Potassium Chloride Carbon Dioxide Anion Gap BUN Creatinine Estimated GFR (MDRD) BUN/Creatinine Ratio Glucose Calcium Total Bilirubin AST ALT Alkaline Phosphatase Total Protein Albumin Globulin Albumin/Globulin Ratio Urine Color Yellow Urine Clarity Clear Urine pH 5.5 Ur Specific Pearce >=1.030 Urine Protein 1+ H Urine Glucose (UA) Negative Urine Ketones Negative Urine Blood 2+ H Urine Nitrite Negative Urine Bilirubin Negative Urine Urobilinogen 0.2 Ur Leukocyte Esterase 1+ H Urine Microscopic RBC 5-10 Urine Microscopic WBC 30-50 Ur Squamous Epith Cells 0-2 Urine Bacteria Trace Urine Test Negative Urine Opiates Screen Negative Ur Oxycodone Screen Negative Urine Methadone Screen Negative Ur Propoxyphene Screen Negative Ur Barbiturates Screen Negative U Tricyclic Antidepress Negative Ur Phencyclidine Scrn Negative Ur Amphetamine Screen Positive H U Methamphetamines Scrn Positive H U Benzodiazepines Scrn Negative Urine Cocaine Screen Negative U Cannabinoids Screen Positive H SARS CoV-2 RNA Rapid ROMEL 09/05/21 09/05/21 09/05/21 12:02 13:30 16:49 WBC 28.48 H RBC 4.57 Hgb 13.9 Hct 40.6 MCV 88.8 MCH 30.4 MCHC 34.2 RDW Coeff of Uday 12.3 Plt Count 264 Immature Gran % (Auto) 0.7 Neut % (Auto) 90.8 H Lymph % (Auto) 6.5 L Mcmullen % (Auto) 1.7 Eos % (Auto) 0.1 Baso % (Auto) 0.2 Neut # (Auto) 25.8 H Lymph # (Auto) 1.9 Mcmullen # (Auto) 0.5 Eos # (Auto) 0.0 Baso # (Auto) 0.1 Immature Gran # (Auto) 0.2 Sodium 131.2 L Potassium 3.32 L Chloride 101.4 Carbon Dioxide 21.5 L Anion Gap 11.62 BUN 12.3 Creatinine 0.77 Estimated GFR (MDRD) 84.00 BUN/Creatinine Ratio 15.97 Glucose 131.2 H Calcium 8.98 Total Bilirubin 0.93 AST 25.9 ALT 15.0 Alkaline Phosphatase 87.2 Total Protein 7.45 Albumin 4.39 Globulin 3.06 Albumin/Globulin Ratio 1.43 Urine Color Urine Clarity Urine pH Ur Specific Pearce Urine Protein Urine Glucose (UA) Urine Ketones Urine Blood Urine Nitrite Urine Bilirubin Urine Urobilinogen Ur Leukocyte Esterase Urine Microscopic RBC Urine Microscopic WBC Ur Squamous Epith Cells Urine Bacteria Urine Test Urine Opiates Screen Ur Oxycodone Screen Urine Methadone Screen Ur Propoxyphene Screen Ur Barbiturates Screen U Tricyclic Antidepress Ur Phencyclidine Scrn Ur Amphetamine Screen U Methamphetamines Scrn U Benzodiazepines Scrn Urine Cocaine Screen U Cannabinoids Screen SARS CoV-2 RNA Rapid ROMEL Negative Orders Category Date Time Status NPO REMINDER: IMAGING ONCE CARE 09/05/21 13:21 Completed Saline Lock [ED IV/MEDIPORT/POWERPORT] .ONCE EMERGENCY 09/05/21 13:20 Active CBC W/ AUTO DIFF Stat LAB 09/05/21 12:02 Completed CBC W/ AUTO DIFF Stat LAB 09/05/21 16:49 Completed CMP [COMPREHENSIVE METABOLIC PANEL] Stat LAB 09/05/21 12:02 Completed COVID [SARS COV-2 RNA RAPID ROMEL] Stat LAB 09/05/21 13:30 Completed TEST URINE [URINE ] Stat LAB 09/05/21 11:55 Completed URINALYSIS C & S IF INDICATED Stat LAB 09/05/21 11:55 Completed URINE CULTURE Stat LAB 09/05/21 11:55 Received URINE DRUG SCREEN (RAPID FOR ED) [DRUG SCREEN, URINE, LAB 09/05/21 11:55 Completed RAPID] Stat 0.9 % Sodium Chloride [Saline Flush] MEDS 09/05/21 13:20 Active 1 syr IVF PRN PRN Ketorolac Tromethamine [Toradol] MEDS 09/05/21 11:13 Discontinued 60 mg IM ONCE STA Levofloxacin/D5w [Levaquin 750 mg/150 ml D5w] MEDS 09/05/21 14:43 Discontinued 750 mg in 150 ml IV ONCE Ondansetron [Zofran Odt] MEDS 09/05/21 11:13 Discontinued 4 mg PO ONCE STA Sodium Chloride 0.9% [Sodium Chloride] 1,000 ml MEDS 09/05/21 13:20 Discontinued IV BOLUS Sodium Chloride 0.9% [Sodium Chloride] 1,000 ml MEDS 09/05/21 15:47 Discontinued IV BOLUS ABDOMEN 1 VIEW Stat RADS 09/05/21 11:[address] ABDOMEN/PELVIS W CONTRAST Stat RADS 09/05/21 13:20 Completed CXR [CHEST, 1V AP ONLY] Stat RADS 09/05/21 14:42 Completed Medications Generic Name Dose Route Start Last Admin Trade Name Freq PRN Reason Stop Dose Admin Sodium Chloride 1 syr 09/05/21 13:20 0.9% Sodium Chloride 10 Ml Disp.Syrin IVF PRN PRN To flush IV Discontinued Medications Generic Name Dose Route Start Last Admin Trade Name Freq PRN Reason Stop Dose Admin Sodium Chloride 1,000 mls @ 1,000 mls/hr 09/05/21 13:20 09/05/21 14:17 Sodium Chloride IV 09/05/21 14:19 1,000 mls/hr BOLUS STA Administration Levofloxacin/Dextrose 750 mg in 150 mls @ 100 mls/hr 09/05/21 14:43 09/05/21 14:51 Levaquin 750 Mg/150 Ml D5w IV 09/05/21 16:12 100 mls/hr ONCE ONE Administration Sodium Chloride 1,000 mls @ 1,000 mls/hr 09/05/21 15:47 09/05/21 15:50 Sodium Chloride IV 09/05/21 16:46 1,000 mls/hr BOLUS STA Administration Ketorolac Tromethamine 60 mg 09/05/21 11:13 09/05/21 11:29 Ketorolac Tromethamine 60 Mg/2 Ml Vial IM 09/05/21 11:14 60 mg ONCE STA Administration Ondansetron HCl 4 mg 09/05/21 11:13 09/05/21 11:28 Ondansetron Hcl 4 Mg Tab.Rapdis PO 09/05/21 11:14 4 mg ONCE STA Administration Vital Signs: Temp Pulse Resp BP Pulse Ox 09/05/21 14:41 85 20 101/71 99 09/05/21 10:58 98.4 F 124 H 18 109/66 95 Discharge Plan Discharge Patient Disposition: ADMITTED INPATIENT Discharge Problem: Acute urinary tract infection, Neutrophilic leukocytosis, Hypokalemia, Altered mental status, Methamphetamine abuse ED Provider: FANNY MONTEZ Condition: Fair Physician Progress Note: [ Patient continues to complain of abd pain; less so but still present. She has undergone an extensive evaluation which has proved a UTI. Her WBC remains marke dly elevated and her level of consciousness remains somewhat lethargic. Patient will be admitted for IV antibiotic therapy and IV fluid hydration. Repeat CBC will be obtained and her potassium repleted.
[2021-09-05] MEDS ORDERED: TORADOL IM STA (11:13)
[2021-09-05] MEDS ORDERED: ZOFRAN ODT PO STA (11:13)
[2021-09-05 12:01] LABS: BILIRUBIN,URINE Negative (NEGATIVE); CLARITY,URINE Clear (CLEAR); COLOR,URINE Yellow (YELLOW); GLUCOSE, URINE (UA) Negative (NEGATIVE); KETONES,URINE Negative (NEGATIVE); LEUKOCYTE ESTERASE ,URINE 1+ (NEGATIVE); NITRITE,URINE Negative (NEGATIVE); PH,URINE 5.5 (5-9); PROTEIN,URINE 1+ (NEGATIVE); URINE PREGNANCY TEST NEGATIVE (NEGATIVE); URINE, BLOOD 2+ (NEGATIVE); UROBILINOGEN,URINE 0.2 (0.2)
[2021-09-05 12:08] LABS: BASOPHILS % (AUTO) 0.1 % (0.0-3.0); EOSINOPHILS # (AUTO) 4.7 K/ul (0.0-0.7); HEMATOCRIT 39.6 % (37.0-47.0); HEMOGLOBIN 13.8 g/dl (12.0-16.0); IMMATURE GRANULOCYTE # (AUTO) 0.4 (0.0-1.0); IMMATURE GRANULOCYTE % (AUTO) 1.5 % (0.0-5.0); LYMPHOCYTES # (AUTO) 0.9 K/uL (0.60-3.4); LYMPHOCYTES % (AUTO) 3.1 (10.0-50.0); MEAN CORPUSCULAR HEMOGLOBIN 30.4 pg (27.0-31.0); MEAN CORPUSCULAR HGB CONC 34.8 (31.8-35.4); MEAN CORPUSCULAR VOLUME 87.2 fl (81.0-99.0); MONOCYTES # (AUTO) 0.6 K/uL (0.4-2.0); NEUTROPHILS # (AUTO) 22.9 K/ul (2.0-6.9); NEUTROPHILS % (AUTO) 77.3 % (42.2-75.2); PLATELET COUNT 292 10^3/uL (140-440); RED BLOOD COUNT 4.54 10^6/ul (4.20-5.40)
[2021-09-05 12:11] LABS: AMPHETAMINE SCREEN,URINE POSITIVE (NEGATIVE); BARBITURATE SCREEN,URINE NEGATIVE (NEGATIVE); BENZODIAZEPINES SCREEN,URINE NEGATIVE (NEGATIVE); CANNABINOID SCREEN,URINE POSITIVE (NEGATIVE); COCAIN SCREEN,URINE NEGATIVE (NEGATIVE); METHADONE URINE SCREEN NEGATIVE (NEGATIVE); METHAMPHETAMINES SCREEN,URINE POSITIVE (NEGATIVE); OPIATE SCREEN,URINE NEGATIVE (NEGATIVE); OXYCODONE URINE SCREEN NEGATIVE (NEGATIVE); PHENCYCLIDINE SCREEN,URINE NEGATIVE (NEGATIVE); PROPOXYPHENE URINE SCREEN NEGATIVE (NEGATIVE); TRICYCLIC ANTIDEPRESSANTS URIN NEGATIVE (NEGATIVE)
[2021-09-05 12:20] LABS: ALBUMIN 4.39 g/dL (3.5-5.0); ALKALINE PHOSPHATASE 87.2 U/L (38-126); ASPARTATE AMINO TRANSFERASE 25.9 U/L (14-36); BILIRUBIN,TOTAL 0.93 mg/dL (0.2-1.3); BLOOD UREA NITROGEN 12.3 mg/dL (7-17); CALCIUM 8.98 mg/dL (8.4-10.2); CARBON DIOXIDE 21.5 mmol/L (22-30.0); CHLORIDE 101.4 mmol/L (98-107); CREATININE 0.77 mg/dL (0.60-1.30); GLUCOSE 131.2 mg/dL (74-106); POTASSIUM 3.32 mmol/L (3.5-5.1); SODIUM 131.2 mmol/L (134.5-145); TOTAL PROTEIN 7.45 g/dL (6.3-8.2)
[2021-09-05 12:25] LABS: BACTERIA,URINE TRACE (NOT PRESENT); SQUAMOUS EPITHELIAL CELL,UR 0-2 (0-5); URINE WBC, MICROSCOPIC 30-50 (0-2)
--- NOTE | 2021-09-05 12:42 | DI ---
EXAM: Supine abdominal radiograph. HISTORY: Constipation. Lower abdominal pain. COMPARISON: 02/20/2021. CT 07/26/2018. FINDINGS: Air and stool throughout the colon. No dilated small bowel loops. No masses or abnormal calcifications. Fat planes maintained. Osseous structures intact. IMPRESSION: No acute radiographic abnormality of the abdomen.
[2021-09-05 13:15] LABS: WHITE BLOOD COUNT 29.57 K/ul (4.6-10.2)
[2021-09-05] MEDS ORDERED: SODIUM CHLORIDE 1,000 ML IV STA ×2 (13:20→15:47)
--- NOTE | 2021-09-05 14:37 | CT ---
EXAM: CT of the abdomen and pelvis with contrast TECHNIQUE: CT of the abdomen and pelvis was performed with contrast. Multiplanar reformats were perf ormed. HISTORY: Bilateral lower quadrant abdominal pain and elevated white blood cell count. COMPARISON: None. FINDINGS: Imaged lower thorax: Calcified granulomas and to the right lower lobe as well as right hilar lymph no joseph. Liver: Unremarkable. Gallbladder/Bile Ducts: No biliary dilation. Gallbladder is unremarkable. Spleen: Unremarkable. Pancreas: Unremarkable. Adrenals: Unremarkable. Kidneys/Ureters: Punctate stone in the left renal interpolar region. No stone in the ureters or hydr onephrosis. Bowel/mesentery/peritoneum: No bowel obstruction. Normal appendix. Visualized air in the right colon appears to be within the bowel lumen. No definite pneumatosis or venous gas. Retroperitoneum/vessels: No aortic aneurysm. No adenopathy. Pelvis: Unremarkable. Bones/body wall: Small amount of soft tissue gas in the right flank, likely direction site. Small fa t containing umbilical hernia. Mild multilevel degenerative changes of the spine. No acute osseous a bnormality. IMPRESSION: 1. No acute abnormality in the abdomen or pelvis. 2. Punctate left kidney stone. No stone in the ureters or hydronephrosis. All CT scans are performed using dose optimization techniques as appropriate to the performed exam an d include at least one of the following: Automated exposure control, adjustment of the mA and/or kV according t o size, and the use of iterative reconstruction technique.
[2021-09-05] MEDS ORDERED: LEVAQUIN 750 MG/150 ML D5W 750 MG/150 ML BAG IV ONE (14:43)
--- NOTE | 2021-09-05 15:10 | DI ---
EXAM: CHEST FRONTAL VIEW HISTORY: Leukocytosis, concern for pneumonia COMPARISON: 02/20/2021 FINDINGS: Heart size and mediastinum remain within normal limits. There is no clear evidence of c onsolidated pneumonia or acute infiltrate. Normal pulmonary vasculature. No visible pleural fluid. IMPRESSION: 1. No obvious consolidated pneumonia.
[2021-09-05 16:54] LABS: BASOPHILS # (AUTO) 0.1 K/uL (0-0.2); BASOPHILS % (AUTO) 0.2 % (0.0-3.0); EOSINOPHILS % (AUTO) 0.1 % (0.0-7.0); HEMATOCRIT 40.6 % (37.0-47.0); HEMOGLOBIN 13.9 g/dl (12.0-16.0); IMMATURE GRANULOCYTE # (AUTO) 0.2 (0.0-1.0); IMMATURE GRANULOCYTE % (AUTO) 0.7 % (0.0-5.0); LYMPHOCYTES # (AUTO) 1.9 K/uL (0.60-3.4); LYMPHOCYTES % (AUTO) 6.5 (10.0-50.0); MEAN CORPUSCULAR HEMOGLOBIN 30.4 pg (27.0-31.0); MEAN CORPUSCULAR HGB CONC 34.2 (31.8-35.4); MEAN CORPUSCULAR VOLUME 88.8 fl (81.0-99.0); MONOCYTES # (AUTO) 0.5 K/uL (0.4-2.0); MONOCYTES % (AUTO) 1.7 (0-10); NEUTROPHILS # (AUTO) 25.8 K/ul (2.0-6.9); NEUTROPHILS % (AUTO) 90.8 % (42.2-75.2); PLATELET COUNT 264 10^3/uL (140-440); RDW COEFFICIENT OF VARIATION 12.3 % (11.6-14.8); RED BLOOD COUNT 4.57 10^6/ul (4.20-5.40); WHITE BLOOD COUNT 28.48 K/ul (4.6-10.2)
[2021-09-05] MEDS ORDERED: TYLENOL PO PRN (17:21)
[2021-09-05] MEDS ORDERED: CITRATE OF MAGNESIA PO ONE (17:21)
[2021-09-05 17:44] VITALS: BMI 29.2
[2021-09-05] MEDS: TORADOL IVP SCH (18:11)
[2021-09-05] MEDS: SODIUM CHLORIDE 0.9%-KCL 20 MEQ 1,000 ML IV SCH (18:14)
[2021-09-06] MEDS: TORADOL IVP SCH ×3 (01:24→18:17)
[2021-09-06] MEDS: SODIUM CHLORIDE 0.9%-KCL 20 MEQ 1,000 ML IV SCH ×3 (01:24→18:17)
[2021-09-06] MEDS ORDERED: LEVAQUIN 750 MG/150 ML D5W 750 MG/150 ML BAG IV SCH (09:00)
[2021-09-06 09:45] LABS: BASOPHILS % (AUTO) 0.2 % (0.0-3.0); EOSINOPHILS # (AUTO) 0.2 K/ul (0.0-0.7); IMMATURE GRANULOCYTE # (AUTO) 0.2 (0.0-1.0); IMMATURE GRANULOCYTE % (AUTO) 0.8 % (0.0-5.0); LYMPHOCYTES # (AUTO) 1.8 K/uL (0.60-3.4); LYMPHOCYTES % (AUTO) 9.8 (10.0-50.0); MEAN CORPUSCULAR HEMOGLOBIN 30.8 pg (27.0-31.0); MEAN CORPUSCULAR HGB CONC 34.2 (31.8-35.4); MEAN CORPUSCULAR VOLUME 90.1 fl (81.0-99.0); MONOCYTES # (AUTO) 0.6 K/uL (0.4-2.0); MONOCYTES % (AUTO) 3.2 (0-10); PLATELET COUNT 215 10^3/uL (140-440); RDW COEFFICIENT OF VARIATION 12.6 % (11.6-14.8); RED BLOOD COUNT 3.54 10^6/ul (4.20-5.40)
[2021-09-06 09:47] LABS: WHITE BLOOD COUNT 18.82 K/ul (4.6-10.2)
[2021-09-06] MEDS ORDERED: ATIVAN PO ONE (09:47)
[2021-09-06 09:48] LABS: HEMATOCRIT 31.9 % (37.0-47.0); HEMOGLOBIN 10.9 g/dl (12.0-16.0)
[2021-09-06 09:53] LABS: ALANINE AMINOTRANSFERASE 12.8 U/L (0-35); ALBUMIN 2.98 g/dL (3.5-5.0); ALKALINE PHOSPHATASE 85.8 U/L (38-126); ASPARTATE AMINO TRANSFERASE 19.2 U/L (14-36); BILIRUBIN,TOTAL 0.31 mg/dL (0.2-1.3); BLOOD UREA NITROGEN 10.3 mg/dL (7-17); CALCIUM 7.45 mg/dL (8.4-10.2); CARBON DIOXIDE 22.7 mmol/L (22-30.0); CHLORIDE 110.2 mmol/L (98-107); CREATININE 0.7 mg/dL (0.60-1.30); GLUCOSE 145.9 mg/dL (74-106); SODIUM 134.5 mmol/L (134.5-145); TOTAL PROTEIN 5.74 g/dL (6.3-8.2)
--- NOTE | 2021-09-06 10:00 | PCM.PROG ---
Date Seen by Provider: 09/06/21 Time Seen by Provider: 09:56 Subjective: pt with abdominal pain, hx meth use, uti w/ elevated wbc is improving, decreased nausea and cramping Objective: Vitals: T=97.7 F, P=95, R=16, CU=148/71, ASW4=026 HEENT: []conjunctiva clear Neck: []supple Lungs: [] no respiratory distress CVS: []RRR Abdomen: []soft no rebound Extremities: []mary grace Neurological: []alert and oriented, anxious Skin: []warm and dry Lab/Tests/Diagnostic Imaging: [] wbc 18.2 Plan: will advance diet, one time ativan for anxiety, continue Levaquin care to Dr Lux at 19:00
[2021-09-06 21:02] VITALS: BP 114/79; TEMP 97.9
--- NOTE | 2021-09-06 22:29 | PCM.DC ---
Final Diagnosis: urinary Tract infection Reason for Hospitalization: Urinary Tract infection Prognosis/Condition at Discharge: Patient was admitted yesterday for UTI to get IV antibiotics. Today she feels better after one dose of antibiotics. She insists on going home tonight. She will sing out AMA Medications at Discharge: Ambulatory Orders Medication Instructions Recorded levofloxacin 500 mg tablet 500 mg PO DAILY #10 tab 09/06/21 Lab/Diagnostics: Abnormal Lab Results 09/06/21 09/06/21 09:32 09:32 WBC 18.82 H D RBC 3.54 L Hgb 10.9 L D Hct 31.9 L D MCV 90.1 MCH 30.8 MCHC 34.2 RDW Coeff of Uday 12.6 Plt Count 215 Immature Gran % (Auto) 0.8 Neut % (Auto) 85.0 H Lymph % (Auto) 9.8 L Kidder % (Auto) 3.2 Eos % (Auto) 1.0 Baso % (Auto) 0.2 Neut # (Auto) 16.0 H Lymph # (Auto) 1.8 Kidder # (Auto) 0.6 Eos # (Auto) 0.2 Baso # (Auto) 0.0 Immature Gran # (Auto) 0.2 Sodium 134.5 Potassium 4.00 Chloride 110.2 H Carbon Dioxide 22.7 Anion Gap 5.60 BUN 10.3 Creatinine 0.70 Estimated GFR (MDRD) 94.00 BUN/Creatinine Ratio 14.71 Glucose 145.9 H Calcium 7.45 L Total Bilirubin 0.31 AST 19.2 ALT 12.8 Alkaline Phosphatase 85.8 Total Protein 5.74 L Albumin 2.98 L Globulin 2.76 Albumin/Globulin Ratio 1.07 Education Provided to Patient and Family: Follow-up with your PCP in 1 week. Return to ED if worse or concerned. Take Antibiotics as prescribed until gone. Follow-ups: pCP in 3 days Discharge Disposition: [facility] Course: Rumely better after getting IV fluids and IV antibioitcs. Plan: Give prescription for Antibiotics for 10 days despite leaving AMA
== END 2021-09-06 22:35 | disposition left against medical advice (07) ==
LOC: MEDSURG A 10:57 → ED 10:57 → MEDSURG A 17:34
PROVIDERS: ADMIT Surgery; ATTEND Internal Medicine Geriatric Medicine
DX: F15.10 Other stimulant abuse, uncomplicated; D72.829 Elevated white blood cell count, unspecified; E87.6 Hypokalemia; R41.82 Altered mental status, unspecified; Z20.822 Contact with and (suspected) exposure to COVID-19; N39.0 Urinary tract infection, site not specified